=== PATIENT | male | born 1985 | race Caucasian/White ===

== ENCOUNTER 2020-07-31 17:05 | Emergency (ER) | payer MEDICARE, MEDICAID, SELFPAY ==
[2020-07-31 17:20] VITALS: BP 132/74; PULSE 80; RESP 18; TEMP 37.3; O2SAT 98; BMI 37.5
--- NOTE | 2020-07-31 17:24 | ED_ITS ---
HPI - Abdominal Pain General Chief Complaint: Back Pain/Injury Stated Complaint: abd pain Time Seen by Provider: 07/31/20 17:24 Source: EMS Mode of arrival: EMS Limitations: no limitations History of Present Illness HPI narrative: 34-year-old male who reports that he has remote history of kidney stones long time ago from the age of 19 and no other medical history presents via EMS from work where he reports that he experienced sudden and sharp left flank and left-sided abdominal pain. EMS was called found patient to be diaphoretic and sweating with complaint of pain and discomfort he was subsequently given 50 mics of fentanyl and transferred to emergency room. States pain improved very slightly still 8 to 9/10. Nausea has improved after for Zofran. Otherwise no recent illness. No recent cough congestion. No nausea vomiting or diarrhea. No recent travel or sick contacts. MD elicited complaint: abdominal pain and flank pain Pertinent past history: kidney stones Onset (ago): minute(s) ( Past for 45 minutes to an hour) Pain Consistency: constant Location: LLQ and L flank Severity: severe Pain scale (0-10): 9 Quality: stabbing, aching and sharp Radiation: LLQ Migration to: LLQ Exacerbating factors: nothing Relieving factors: medication Associated symptoms: nausea Treatments prior to arrival: other ( he was given 50 mEq of fentanyl by EMS as well as 4 mg of IV Zofran) Related Data Previous Rx's Medication Instructions Recorded ibuprofen 800 mg PO Q8H PRN #30 tab 07/31/20 ondansetron HCl [Zofran] 4 mg PO Q8H PRN #10 tab 07/31/20 oxycodone 5 mg PO BID PRN #10 tab 07/31/20 tamsulosin [Flomax] 0.4 mg PO DAILY #10 cap 07/31/20 Allergies Allergy/AdvReac Type Severity Reaction Status Date / Time No Known Allergies Allergy Unverified 06/25/20 15:44 Review of Systems Review of Systems Constitutional: No Weight loss, No Fever, No Chills, No Night Sweats, No Fatigue, No Malaise ENT/Mouth: No Hearing loss, No Ear Pain, No Nasal Congestion, No Sinus Pain, No Hoarseness, No sore throat, No Rhinorrhea, No Swallowing Difficulty Eyes: No Eye Pain, No Swelling, No Redness, No Foreign Body, No Discharge, No Vision Changes Cardiovascular: No Chest Pain, No SOB, No Dyspnea on Exertion, No Orthopnea, No Edema, No Palpitations Respiratory: No Cough, No Sputum, No Wheezing, No Smoke Exposure, No Dyspnea Gastrointestinal: + Nausea, No Vomiting, No Diarrhea, No Constipation, + abdominal Pain, No Hematochezia, No Melena Genitourinary: no irregular bleeding, No Dysuria, No Urinary Frequency, No Hematuria, No Urinary Incontinence, No Urgency, No Flank Pain, No Urinary Flow Changes, No Hesitancy Musculoskeletal: No joint pain, No Myalgias, No Joint Swelling Skin: No Skin Lesions, No rash Neuro: No Weakness, No Numbness, No Paresthesias, No Loss of Consciousness, No Dizziness, No Headache Psych: No Anxiety/Panic, No Depression, No SI/HI/AH/VH, No Social Issues, He me/Lymph: No Bruising, No Bleeding,No Lymphadenopathy Endocrine: No Polyuria, No Polydipsia, No Temperature Intolerance Yes all other systems are reviewed and are negative Physical Exam Vital Signs: Vital Signs: Vital Signs Temp Pulse Resp BP Pulse Ox 07/31/20 17:20 99.1 F 80 18 132/74 98 Body Mass Index 37.5 Reviewed Course Course Course Narrative: has been resting comfortably. Labs showed leukocytosis of 14 likely reactive from thenausea vomiting secondary to the pain and diaphoresis. Otherwise labs are stable. UA is negative. CT of the abdomen pelvis without contrast shows that there is left grade 2 hydronephrosis secondary to a 2 mm obstructive left UVJ calculus. 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 Patient has been resting comfortably in fact he has been conversing on the phone in no acute distress. He will be discharged home with ibuprofen / analgesia and Flomax and advised for follow-up with Urology. Plan reviewed and agreeable. Stable for discharge. MDM - Abdominal Pain MDM Narrative Medical decision making narrative: will check labs including UA and treat with IV fluids and 30 mg of IV Toradol. Will check CT of abdomen/ pelvis without contrast for renal calculi/ obstructive process. Differential Diagnosis Differential diagnosis: Likely abdominal pain, calculus of kidney, diverticulitis and renal colic; Unlikely aortic dissection, acute appendicitis, bowel perforation, constipation, endometriosis, gastroenteritis, gastritis, mesenteric ischemia, pancreatitis, peptic ulcer disease and small bowel obstruction Lab Data Result diagrams: 07/31/20 20:22 07/31/20 18:16 Labs: Lab Results 07/31/20 07/31/20 07/31/20 Range/Units 18:16 18:16 20:22 WBC 14.1 H (4.8-10.8) X10*3/uL RBC 4.97 (4.60-5.80) X10*6/uL Hgb 14.6 (14.0-18.0) g/dl Hct 44.8 (42-52) % MCV 90.1 (80-98) fL MCH 29.4 (27.0-33.0) pg MCHC 32.6 (31.0-36.0) g/dl RDW 12.3 (11.0-16.0) % Plt Count 321 (160-400) X10*3/uL MPV 8.9 L (9.4-12.4) fL Immature Gran % (Auto) 0.2 (0.0-0.4) % Neut % (Auto) 79.0 H (45-73) % Lymph % (Auto) 14.7 L (20-40) % [place] % (Auto) 5.2 (2-11) % Eos % (Auto) 0.3 (0-4) % Baso % (Auto) 0.6 (0-2) % Lymph # (Auto) 2.1 (1.2-4.9) X10*3/uL [place] # (Auto) 0.7 (0.1-1.2) X10*3/uL Eos # (Auto) 0.0 (0.0-0.4) X10*3/uL Baso # (Auto) 0.1 (0.0-0.2) X10*3/uL Abs Immat Gran (auto) 0.03 (0.00-0.03) X10*3/uL Absolute Neuts (auto) 11.2 H (2.0-8.3) X10*3/uL Absolute Nucleated RBC 0.000 (0.0-0.012) X10*3/uL Nucleated RBC % (auto) 0.0 (0.0-0.2) /100WBC Sodium 143 (135-145) mmol/L Potassium 4.5 (3.3-5.1) mmol/l Chloride 108 (96-108) mmol/L Carbon Dioxide 25 (22-29) mmol/L Anion Gap 15 (12-20) BUN 15 (9-16) mg/dL Creatinine 1.04 (0.5-1.4) mg/dL Estim Creat Clear Calc 123.8 Estimated GFR > 60 Random Glucose 101 (60-115) mg/dL Calcium 8.8 (8.4-10.2) mg/dL Total Bilirubin 0.6 (0.0-1.0) mg/dL AST 27 (5-37) U/L ALT 32 (0-40) U/L Alkaline Phosphatase 91 (39-117) U/L Total Protein 6.9 (6.5-8.0) g/dL Albumin 4.2 (3.5-5.0) g/dL Urine Color YELLOW Urine Appearance CLEAR Urine pH 5.5 (5.0-8.0) Ur Specific Treichlers >= 1.030 H (1.005-1.025) Urine Protein NEG (NEG-TRACE) MG/DL Urine Glucose (UA) NEG (NEG) MG/DL Urine Ketones NEG (NEG) MG/DL Urine Blood 3+ H (NEG) Urine Nitrite NEG (NEG) Ur Leukocyte Esterase NEG (NEG) Urine RBC 5-9 H (0) /HPF Urine WBC 0 (0-4) /HPF Ur Squamous Epith Cells NONE /LPF Urine Bacteria NONE /LPF Imaging Data Abdomen pelvis CT without contrast: Radiologist's impression: [place] [id number] CT Scan Report Signed Patient: Manny Arellano#: [id number] : 1985Acct:[id number] Age/Sex: 34 / MADM Date: 07/31/20 Loc: HO.ED Attending Dr: Ordering Physician: Delon Martin NP Date of Service: 07/31/20 Procedure(s): CT abdomen pelvis wo con Accession Number(s): [id number] cc: Delon Martin NP~ EXAMINATION: CT ABDOMEN AND PELVIS WITHOUT CONTRAST CLINICAL INFORMATION: Left-sided pain. COMPARISON: June 01, 2019. TECHNIQUE: Contiguous axial thin section helical images of the abdomen and pelvis were performed without oral or IV contrast. The data set was reformatted in the coronal and sagittal planes and reviewed on an independent workstation. DLP: 881 mGy-cm. FINDINGS: The visualized lung bases are clear. The visualized portions of the heart are unremarkable. The liver is of normal size and attenuation without focal lesions nor intrahepatic biliary ductal dilation. A normal gallbladder is identified. There is no wall thickening or discernible pericholecystic fluid. The spleen, pancreas, adrenal glands are unremarkable. Both kidneys are of normal size and attenuation. There are no renal calculi. There is left grade 2 hydroureteronephrosis secondary to a 2 mm obstructive left UVJ calculus. There is no abdominal free fluid. There is neither mesenteric nor retroperitoneal lymphadenopathy. Normal unopacified loops of small and large bowel are identified. There is no pelvic free fluid. The urinary bladder is unremarkable. There is neither pelvic nor inguinal lymphadenopathy. Bone windows: Neither sclerotic nor lytic bone lesions are identified. There are bilateral L5 pars defects with mild anterior displacement of L5 in relation to S1. CT/CT abdomen pelvis wo con IMPRESSION: Left grade 2 hydroureteronephrosis secondary to 2 mm obstructive left UVJ calculus. 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 Automated exposure control (Care Dose) Adjustment of the mA and/or kv according to patient size (this includes techniques or standardized protocols for targeted exams where dose is matched to indication / reason for exam; i.e. extremities or head). Dictated By:JOSEF CARVAJAL MD Signed By:<Electronically signed by JOSEF CARVAJAL MD in OV>07/31/20 1811 DD/ 172 TD/TT: Searchlight Operator: WP Discharge Plan Discharge Clinical Impression: Renal colic Patient Disposition: Home, Self-Care Instructions: Kidney Stones (ED) Additional Instructions: Push fluids Take medication prescribed Follow-up with urologist on Monday Return if any concerns or worsening symptoms Thank you Prescriptions: New ibuprofen 800 mg tablet 800 mg PO Q8H PRN (Reason: pain) Qty: 30 RF: 0 ondansetron HCl [Zofran] 4 mg tablet 4 mg PO Q8H PRN (Reason: nausea and vomiting) Qty: 10 RF: 0 tamsulosin [Flomax] 0.4 mg capsule 0.4 mg PO DAILY Qty: 10 RF: 0 oxycodone 5 mg tablet 5 mg PO BID PRN (Reason: pain) Qty: 10 RF: 0 Referrals: Jimmy Vaughn MD [Physician] - 3 days Stand Alone Forms: Work/School Release [facility] Past Medical History Medical History (Updated 07/31/20 @ 21:13 by Delon Martin NP) No known health problems Social History Social History Alcohol intake: never Smoked in Last 30 Days: No Use of substances other than those prescribed or required for medical reasons: No Advance Directives: No Advance Directives Information Provided: No
[2020-07-31] MEDS: Ketorolac Tromethamine 30 MG/ML VIAL IVPUSH (18:20)
[2020-07-31] MEDS: 0.9 % Sodium Chloride 500 ML 1000 ML IV (18:20)
[2020-07-31 18:26] LABS: Glucose Urine UA NEG (NEG); Leukocyte Esterase Urine NEG (NEG); Nitrite Urine NEG (NEG); PH 5.5 (5.0-8.0); Specific Gravity - Urine >= 1.030 (1.005-1.025); Urine Blood 3+ (NEG); Urine Ketones NEG (NEG); Urine Protein NEG (NEG-TRACE)
[2020-07-31 18:27] LABS: Appearance Urine CLEAR; Color Urine YELLOW
[2020-07-31 18:33] LABS: WBC Urine 0 /HPF (0-4)
[2020-07-31 18:56] LABS: Alanine Aminotransferase 32 U/L (0-40); Albumin Level 4.2 g/dL (3.5-5.0); Alkaline Phosphatase 91 U/L (39-117); Anion Gap 15 (12-20); Aspartate Amino Transferase 27 U/L (5-37); Bilirubin Total 0.6 mg/dL (0.0-1.0); Blood Urea Nitrogen 15 mg/dL (9-16); Calcium 8.8 mg/dL (8.4-10.2); Carbon Dioxide 25 mmol/L (22-29); Chloride 108 mmol/L (96-108); Creatinine Clr Calc Pharmacy 123.8; Estimated Glomerular Filt Rate > 60; Glucose Random 101 mg/dL (60-115); Potassium 4.5 mmol/l (3.3-5.1); Sodium 143 mmol/L (135-145); Total Protein 6.9 g/dL (6.5-8.0)
[2020-07-31 20:27] LABS: Basophils Absolute Auto 0.1 X10*3/uL (0.0-0.2); Basophils Percent Auto 0.6 % (0-2); Eosinophils Percent Auto 0.3 % (0-4); Hematocrit 44.8 % (42-52); Hemoglobin 14.6 g/dl (14.0-18.0); Imm Gran Abs Auto 0.03 X10*3/uL (0.00-0.03); Imm Gran Pct Auto 0.2 % (0.0-0.4); Lymphocytes Absolute Auto 2.1 X10*3/uL (1.2-4.9); Lymphocytes Percent Auto 14.7 % (20-40); MANUAL DIFF FLAG NO; Mean Corpuscular HGB Conc 32.6 g/dl (31.0-36.0); Mean Corpuscular Hemoglobin 29.4 pg (27.0-33.0); Mean Corpuscular Volume 90.1 fL (80-98); Mean Platelet Volume 8.9 fL (9.4-12.4); Monocytes Absolute Auto 0.7 X10*3/uL (0.1-1.2); Monocytes Percent Auto 5.2 % (2-11); Neutrophils Absolute Auto 11.2 X10*3/uL (2.0-8.3); Platelet Count 321 X10*3/uL (160-400); Red Blood Count 4.97 X10*6/uL (4.60-5.80); Red Cell Distribution Width 12.3 % (11.0-16.0); White Blood Count 14.1 X10*3/uL (4.8-10.8)
== END 2020-07-31 21:45 | disposition home or self-care (01) ==
PROVIDERS: Nurse Practitioner Primary Care; Emergency Provider Emergency Medicine; PCP Family Medicine
DX: N13.2 Hydronephrosis with renal and ureteral calculous obstruction (principal); Z87.442 Personal history of urinary calculi
CPT/HCPCS: 36415; 74176; 80053; 81001; 85025; 96361; 96374; 99284; J1885

== ENCOUNTER 2020-09-21 12:05 | Emergency (ER) | payer MEDICARE, MEDICAID, SELFPAY ==
[2020-09-21 12:12] VITALS: BP 128/88; PULSE 127; RESP 18; TEMP 37.1; O2SAT 96; BMI 38.5
--- NOTE | 2020-09-21 12:25 | XR_ITS ---
EXAMINATION: XR CHEST CLINICAL INFORMATION: Cough and night sweats COMPARISON: None TECHNIQUE: Frontal view of the chest was obtained. FINDINGS: No significant abnormality is noted involving the heart, lungs, mediastinum, bony thorax or soft tissues. XR/XR chest 1V IMPRESSION: Unremarkable chest examination.
--- NOTE | 2020-09-21 13:02 | ED_ITS ---
HPI - General Adult General Chief complaint: Dizziness Stated complaint: Covid/ chest pain Time Seen by Provider: 09/21/20 12:23 Source: patient History of Present Illness HPI narrative: Patient presents to the ED for COVID like symptoms. Patient states night sweats, chest pain, coughing, and dizziness described as lightheadedness for the past 2 days. Patient states family members also at home having similar symptoms. Patient denies any swelling of lower extremities, calf pain, coughing up blood, chest pain on inspiration, or shortness of breath. Patient presently denies any chest pain or shortness of breath. Related Data Previous Rx's Medication Instructions Recorded ibuprofen 800 mg PO Q8H PRN #30 tab 07/31/20 ondansetron HCl [Zofran] 4 mg PO Q8H PRN #10 tab 07/31/20 oxycodone 5 mg PO BID PRN #10 tab 07/31/20 tamsulosin [Flomax] 0.4 mg PO DAILY #10 cap 07/31/20 Allergies Allergy/AdvReac Type Severity Reaction Status Date / Time No Known Allergies Allergy Verified 09/21/20 12:14 Review of Systems Review of Systems: Yes all other systems are reviewed and are negative Constitutional: Constitutional: Reports as per HPI, Reports no additional constitutional complaints, Reports body ache(s), Reports chills, Reports fatigue, Reports fever(s) and Reports night sweats Eyes: Eyes: Reports as per HPI and Reports no additional eye complaints ENT: Reports system reviewed and no additional complaints, except as documented and Reports as per HPI Cardiovascular: Cardiovascular: Reports as per HPI, Reports no additional cardiovascular complaints, Reports chest pain, Denies chest pain at rest, Denies chest pain with activity, Denies dyspnea on exertion, Denies orthopnea and Denies paroxysmal nocturnal dyspnea Respiratory: Respiratory: Reports as per HPI, Reports no additional respiratory complaints, Reports cough and Denies dyspnea on exertion Gastrointestinal: Gastrointestinal: Reports as per HPI and Reports no additional gastrointestinal complaints Genitourinary: Genitourinary: Reports no additional male genitourinary complaints and Reports as per HPI Musculoskeletal: Musculoskeletal: Reports no additional musculoskeletal complaints and Reports as per HPI Neurologic: Reports system reviewed and no additional complaints, except as documented and Reports as per HPI Psychiatric: Psychiatric: Reports no additional psychiatric complaints and Reports as per HPI Endocrine: Endocrine: Reports fatigue PMFSH Past Medical History Medical History (Updated 09/21/20 @ 16:42 by LEORA Lin) No known health problems Social History Social History Alcohol intake: never Advance Directives: No Advance Directives Information Provided: No Physical Exam Vital Signs: Vital Signs: Last Vital Signs Temp 98.7 F 09/21/20 12:12 Pulse 127 H 09/21/20 12:12 Resp 18 09/21/20 12:12 BP 128/88 09/21/20 12:12 Pulse Ox 96 09/21/20 12:12 Body Mass Index 38.5 Const: General: cooperative, healthy appearing, comfortable, no acute distress, well developed, alert, awake and Physically active Orientation/consciousness: patient oriented x3 HENMT: Head: Yes normal to inspection and Yes No palpable skull fracture present Eyes: General: appearance normal, both eyes and all related structures Neck: Neck: Yes normal visual inspection and Yes full ROM Chest: Chest palpation & inspection: normal inspection of the chest, normal palpation of entire chest wall and no localized rib tenderness Resp: Effort & Inspection: normal respiratory effort and able to speak in complete sentences Auscultation: clear to auscultation bilaterally Cardio: Jugular venous distension: no JVD Heart sounds: S1 normal heart sound present and S2 normal heart sound present GI: Inspection: Yes normal to inspection and No abdominal wall ecchymosis Palpation (GI): Soft to palpation, not firm, nontender, no guarding and not ri gid : General: No CVA tenderness and Yes no CVA tenderness Back/Spine/Pelvis: Back: no CVA tenderness, No CVA tenderness and No back tenderness Skin: General skin exam: no rashes or lesions noted and elasticity normal Neuro: General: patient oriented x3, gait normal and CN's II-XI intact bilaterally Cranial nerves: Yes CN's II-XII intact bilaterally Extrem: General: Yes normal to inspection and Yes full ROM Course Course Course Narrative: Patient is not toxic appearing. Patient is tachycardic due to anxiety most likely. Patient will be given oral fluids, Motrin, and have vital Signs re-evaluated. Patient will have chest x-ray ordered an COVID swab. Reevaluation(s) Reevaluation #1: After drinking oral fluids patient heart rate still tachycardic at 01:27. Due to patient stating he had chest pain yesterday and now tachycardic will do basic labs including D-dimer. Reevaluation #2: Patient D-dimer above 2000. Patient presently is asymptomatic. Due to D-dimer once kidney function comes back patient will have a chest CTA. Time: 14:22 Reevaluation #3: Chest CT negative for PE. Patient is safe for discharge. Patient presently asymptomatic is not have any chest pain or shortness of breath. COVID results pending. Patient educated on self-isolation. patient informed of nodules on chest CT scan and need for repeat in 6 months. Time: 16:39 Medical Decision Making MDM Narrative Medical decision making narrative: Viral syndrome Lab Data Result diagrams: 09/21/20 13:35 09/21/20 13:35 Labs: Lab Results 09/21/20 09/21/20 09/21/20 Range/Units 13:35 13:35 13:35 WBC 5.4 (4.8-10.8) X10*3/uL RBC 5.56 (4.60-5.80) X10*6/uL Hgb 16.6 (14.0-18.0) g/dl Hct 50.0 (42-52) % MCV 89.9 (80-98) fL MCH 29.9 (27.0-33.0) pg MCHC 33.2 (31.0-36.0) g/dl RDW 12.6 (11.0-16.0) % Plt Count 326 (160-400) X10*3/uL MPV 9.1 L (9.4-12.4) fL Immature Gran % (Auto) 0.6 H (0.0-0.4) % Neut % (Auto) 61.8 (45-73) % Lymph % (Auto) 21.1 (20-40) % [place] % (Auto) 15.1 H (2-11) % Eos % (Auto) 0.7 (0-4) % Baso % (Auto) 0.7 (0-2) % Lymph # (Auto) 1.2 (1.2-4.9) X10*3/uL [place] # (Auto) 0.8 (0.1-1.2) X10*3/uL Eos # (Auto) 0.0 (0.0-0.4) X10*3/uL Baso # (Auto) 0.0 (0.0-0.2) X10*3/uL Abs Immat Gran (auto) 0.03 (0.00-0.03) X10*3/uL Absolute Neuts (auto) 3.4 (2.0-8.3) X10*3/uL Absolute Nucleated RBC 0.000 (0.0-0.012) X10*3/uL Nucleated RBC % (auto) 0.0 (0.0-0.2) /100WBC PT (10.8-13.0) SEC INR (0.9-1.1) APTT (24.1-38.0) SEC D-Dimer 2393 NG/ML Sodium 138 (135-145) mmol/L Potassium 4.4 (3.3-5.1) mmol/l Chloride 104 (96-108) mmol/L Carbon Dioxide 25 (22-29) mmol/L Anion Gap 13 (12-20) BUN 15 (9-16) mg/dL Creatinine 0.88 (0.5-1.4) mg/dL Estim Creat Clear Calc 137.8 Estimated GFR > 60 Random Glucose 100 (60-115) mg/dL Calcium 8.7 (8.4-10.2) mg/dL Ferritin 250 (20-250) ng/mL Total Bilirubin 0.6 (0.0-1.0) mg/dL AST 25 (5-37) U/L ALT 36 (0-40) U/L Alkaline Phosphatase 89 (39-117) U/L Lactate Dehydrogenase 209 (118-273) U/L Troponin I High Sens (<3.5-35.0) ng/L Total Protein 7.3 (6.5-8.0) g/dL Albumin 4.4 (3.5-5.0) g/dL Procalcitonin ng/mL 09/21/20 09/21/20 09/21/20 Range/Units 13:35 13:35 13:35 WBC (4.8-10.8) X10*3/uL RBC (4.60-5.80) X10*6/uL Hgb (14.0-18.0) g/dl Hct (42-52) % MCV (80-98) fL MCH (27.0-33.0) pg MCHC (31.0-36.0) g/dl RDW (11.0-16.0) % Plt Count (160-400) X10*3/uL MPV (9.4-12.4) fL Immature Gran % (Auto) (0.0-0.4) % Neut % (Auto) (45-73) % Lymph % (Auto) (20-40) % [place] % (Auto) (2-11) % Eos % (Auto) (0-4) % Baso % (Auto) (0-2) % Lymph # (Auto) (1.2-4.9) X10*3/uL [place] # (Auto) (0.1-1.2) X10*3/uL Eos # (Auto) (0.0-0.4) X10*3/uL Baso # (Auto) (0.0-0.2) X10*3/uL Abs Immat Gran (auto) (0.00-0.03) X10*3/uL Absolute Neuts (auto) (2.0-8.3) X10*3/uL Absolute Nucleated RBC (0.0-0.012) X10*3/uL Nucleated RBC % (auto) (0.0-0.2) /100WBC PT 12.8 (10.8-13.0) SEC INR 1.1 (0.9-1.1) APTT 35.4 (24.1-38.0) SEC D-Dimer NG/ML Sodium (135-145) mmol/L Potassium (3.3-5.1) mmol/l Chloride (96-108) mmol/L Carbon Dioxide (22-29) mmol/L Anion Gap (12-20) BUN (9-16) mg/dL Creatinine (0.5-1.4) mg/dL Estim Creat Clear Calc Estimated GFR Random Glucose (60-115) mg/dL Calcium (8.4-10.2) mg/dL Ferritin (20-250) ng/mL Total Bilirubin (0.0-1.0) mg/dL AST (5-37) U/L ALT (0-40) U/L Alkaline Phosphatase (39-117) U/L Lactate Dehydrogenase (118-273) U/L Troponin I High Sens < 3.5 (<3.5-35.0) ng/L Total Protein (6.5-8.0) g/dL Albumin (3.5-5.0) g/dL Procalcitonin 0.07 ng/mL ECG Data Interpretation: Sinus tachycardia. Ventricular rate 115. Pr interval 134. QRS duration 96. QTC 448. Negative STEMI Discharge Plan Discharge Clinical Impression: Acute viral syndrome Patient Disposition: Home, Self-Care Instructions: Viral Syndrome (ED) Additional Instructions: Return to the ED for any chest pain, shortness of breath, weakness, coughing up blood, intractable fever, chills, or any other concerning symptoms. Recommend 14 days self-isolation if COVID test come back positive or symptoms worsen. Prescriptions: No Action ibuprofen 800 mg tablet 800 mg PO Q8H PRN (Reason: pain) Qty: 30 RF: 0 ondansetron HCl [Zofran] 4 mg tablet 4 mg PO Q8H PRN (Reason: nausea and vomiting) Qty: 10 RF: 0 tamsulosin [Flomax] 0.4 mg capsule 0.4 mg PO DAILY Qty: 10 RF: 0 oxycodone 5 mg tablet 5 mg PO BID PRN (Reason: pain) Qty: 10 RF: 0 Referrals: Hannah Benoit DO [Primary Care Provider] - 2 days (Viral syndrome. Troponin negative. Chest CTA negative for PE or pneumonia.) Stand Alone Forms: Work/School Release Print Language: Taiwanese
[2020-09-21] MEDS: Ibuprofen 800 MG TABLET PO (13:05)
--- NOTE | 2020-09-21 13:08 | ECG_ITS ---
Test Reason : WEAKNESS Blood Pressure : / mmHG Vent. Rate : 115 BPM Atrial Rate : 115 BPM P-R Int : 134 ms QRS Dur : 096 ms QT Int : 324 ms P-R-T Axes : 023 -18 040 degrees QTc Int : 448 ms Sinus tachycardia Minimal voltage criteria for LVH, may be normal variant Borderline ECG When compared with ECG of 26-JUL-2012 11:47, Vent. rate has increased BY 38 BPM Referred By: Missael George Electronically Signed By:Dat Bañuelos
[2020-09-21] MEDS: 0.9 % Sodium Chloride 1,000 ML 999 ML IVCONT (13:36)
[2020-09-21 13:45] LABS: MANUAL DIFF FLAG NO
[2020-09-21 13:51] LABS: INTERNATIONAL NORM RATIO 1.1 (0.9-1.1); Prothrombin Time 12.8 SEC (10.8-13.0)
[2020-09-21 13:52] LABS: Basophils Percent Auto 0.7 % (0-2); Eosinophils Percent Auto 0.7 % (0-4); Hemoglobin 16.6 g/dl (14.0-18.0); Imm Gran Abs Auto 0.03 X10*3/uL (0.00-0.03); Imm Gran Pct Auto 0.6 % (0.0-0.4); Lymphocytes Absolute Auto 1.2 X10*3/uL (1.2-4.9); Lymphocytes Percent Auto 21.1 % (20-40); Mean Corpuscular HGB Conc 33.2 g/dl (31.0-36.0); Mean Corpuscular Hemoglobin 29.9 pg (27.0-33.0); Mean Corpuscular Volume 89.9 fL (80-98); Mean Platelet Volume 9.1 fL (9.4-12.4); Monocytes Absolute Auto 0.8 X10*3/uL (0.1-1.2); Monocytes Percent Auto 15.1 % (2-11); Neutrophils Absolute Auto 3.4 X10*3/uL (2.0-8.3); Neutrophils Percent Auto 61.8 % (45-73); Platelet Count 326 X10*3/uL (160-400); Red Blood Count 5.56 X10*6/uL (4.60-5.80); Red Cell Distribution Width 12.6 % (11.0-16.0); White Blood Count 5.4 X10*3/uL (4.8-10.8)
[2020-09-21 13:54] LABS: Partial Thromboplastin Time 35.4 SEC (24.1-38.0)
[2020-09-21 14:02] LABS: D Dimer 2393 NG/ML
--- NOTE | 2020-09-21 14:15 | PC.NURSE ---
PT ARRIVES VIA EMS C/O DIZZINESS AND CHILLS SINCE YESTERDAY. AFEBRILE ON ARRIVAL, SLIGHTLY TACHYCARDIC. RESP EVEN AND NONLABOURED, SPEAKING IN CLEAR FULL SENTENCES. SKIN COLOUR APPROPRIATE FOR ETHNICITY, WARM, DRY.
[2020-09-21 14:37] LABS: Alanine Aminotransferase 36 U/L (0-40); Albumin Level 4.4 g/dL (3.5-5.0); Alkaline Phosphatase 89 U/L (39-117); Anion Gap 13 (12-20); Aspartate Amino Transferase 25 U/L (5-37); Bilirubin Total 0.6 mg/dL (0.0-1.0); Blood Urea Nitrogen 15 mg/dL (9-16); Calcium 8.7 mg/dL (8.4-10.2); Carbon Dioxide 25 mmol/L (22-29); Chloride 104 mmol/L (96-108); Creatinine Clr Calc Pharmacy 137.8; Estimated Glomerular Filt Rate > 60; Glucose Random 100 mg/dL (60-115); Lactate Dehydrogenase 209 U/L (118-273); Potassium 4.4 mmol/l (3.3-5.1); Sodium 138 mmol/L (135-145); Total Protein 7.3 g/dL (6.5-8.0); Troponin-I High Sensitivity < 3.5 ng/L (<3.5-35.0)
--- NOTE | 2020-09-21 14:46 | CT_ITS ---
EXAMINATION: CT ANGIOGRAM OF THE CHEST WITH AND WITHOUT CONTRAST (CT PULMONARY ANGIOGRAM FOR PE) CLINICAL INFORMATION: Tachycardia, elevated D-dimer. PE. COMPARISON: None TECHNIQUE: Prior to contrast administration, noncontrast localization images were obtained. Subsequently, multidetector volumetric imaging was performed from the thoracic inlet to below the diaphragms following the administration of 65 mL Omnipaque 350 intravenous contrast. No contrast reaction reported Sagittal, coronal, and MIP oblique sagittal reformatted images were obtained on the CT workstation, uploaded to PACS, and reviewed. This CT examination was performed using dose optimization techniques as appropriate, variously including the following: *Automated exposure control *Adjustment of mA and/or kV according to patient size (this includes techniques or standardized protocols for targeted exams where dose is matched to indication/reason for exam; i.e. extremities or head) *Use of iterative reconstruction technique Total exam dose-length product 440 mGy-cm FINDINGS: PULMONARY ARTERIES: No evidence of filling defects to indicate central or segmental pulmonary emboli. THORACIC AORTA: No aneurysm or dissection. LUN mm nodule left lower lobe image 318/8. 4 mm nodule right lower lobe image 266/8. Mild right posterior lung dependent changes. No confluent consolidation. Trachea and central airway are patent. PLEURA: No pleural effusion or pneumothorax. MEDIASTINUM: Normal heart size. No pericardial effusion. No hilar or mediastinal lymphadenopathy. No evidence of septal bowing or right heart strain. CHEST WALL/AXILLA: No axillary or internal mammary lymphadenopathy. OSSEOUS STRUCTURES: No acute or suspicious osseous abnormality. UPPER ABDOMEN: Unremarkable. No reflux of contrast into the hepatic veins to suggest elevated right heart pressures. CT/CT angio chest PE protocol IMPRESSION: 1. No evidence of filling defects to indicate central or segmental pulmonary emboli. 2. There are 2 pulmonary nodules, larger measuring 4 mm. According to the UPDATED 2017 Fleischner Society recommendations, the advised follow-up imaging for solid nodules < 6 mm is: LOW RISK PATIENT: No routine follow-up. HIGH RISK PATIENT: Optional CT at 12 months. VTE: negative
[2020-09-21] MEDS: iohexoL 350 MG/ML 100 ML INFUS..BTL IV (15:19)
[2020-09-21 15:30] LABS: Procalcitonin 0.07 ng/mL
[2020-09-21 15:39] LABS: Ferritin 250 ng/mL (20-250)
[2020-09-21 17:06] VITALS: BP 141/83; PULSE 100; RESP 16; O2SAT 97
== END 2020-09-21 17:10 | disposition home or self-care (01) ==
PROVIDERS: Physician Assistant; Emergency Provider Emergency Medicine; PCP Family Medicine
DX: U07.1 COVID-19 (principal)
CPT/HCPCS: 36415; 71045; 71275; 80053; 82728; 83615; 84145; 84484; 85025; 85379; 85610; 85730; 93005; 96360; 99284; Q9967; U0003

== ENCOUNTER 2020-09-22 12:12 | Emergency (ER) | payer MEDICARE, MEDICAID, SELFPAY ==
--- NOTE | 2020-09-22 12:15 | ED_ITS ---
HPI - Back Pain/Injury General Chief Complaint: Dizziness <Julia Thomson NP - Last Filed: 09/22/20 15:16> Stated Complaint: back pain <Julia Thomson NP - Last Filed: 09/22/20 15:16> Time Seen by Provider: 09/22/20 12:13 <Julia Thomson NP - Last Filed: 09/22/20 15:16> Source: patient and EMS <Julia Thomson NP - Last Filed: 09/22/20 15:16> Mode of arrival: EMS <Julia Thomson NP - Last Filed: 09/22/20 15:16> Limitations: no limitations <Julia Thomson NP - Last Filed: 09/22/20 15:16> History of Present Illness HPI Narrative: Here with complaints of low back pain with radiation down the left leg with intermittent numbness and tingling x2 months. The patient tells me he works at [employer] and does a lot of lifting and thinks he may have injured his back at work. No new back pain. No saddle anesthesia no bowel or bladder incontinence. No fevers or chills. The patient is ambulatory. Of note, the patient was seen in this emergency department yesterday for body aches and chills. He had a COVID swab sent which is pending. He had a chest x- ray and a CTA which were unremarkable. He tells me that the symptoms are actually improved. He does still have a dry cough with no shortness of breath or chest discomfort. He is complaining of some dizziness which occurs with position changes. And he describes as feeling lightheaded. No vomiting or diarrhea. He has been tolerating p.o. with no difficulty. <Julia Thomson NP - Last Filed: 09/22/20 15:16> MD elicited complaint: back pain <Julia Thomson NP - Last Filed: 09/22/20 15:16> Pertinent past history: prior back pain <Julia Thomson NP - Last Filed: 09/22/20 15:16> Onset (ago): month(s) <Julia Thomson NP - Last Filed: 09/22/20 15:16> Timing: intermittent <Julia Thomson NP - Last Filed: 09/22/20 15:16> Severity: mild <Julia Thomson NP - Last Filed: 09/22/20 15:16> Similar Symptoms Previously: Yes <Julia Thomson NP - Last Filed: 09/22/20 15:16> Quality: sharp <Julia Thomson NP - Last Filed: 09/22/20 15:16> Location: lumbar spine <Julia Thomson NP - Last Filed: 09/22/20 15:16> Radiation: left upper leg <Julia Thomson NP - Last Filed: 09/22/20 15:16> Exacerbating factors: movement <Julia Thomson NP - Last Filed: 09/22/20 15:16> Relieving factors: immobilization <Julia Thomson NP - Last Filed: 09/22/20 15:16> Associated symptoms: denies other symptoms <Julia Thomson NP - Last Filed: 09/22/20 15:16> Related Data Home Medications: Previous Rx's Medication Instructions Recorded ibuprofen 800 mg PO Q8H PRN #30 tab 07/31/20 ondansetron HCl [Zofran] 4 mg PO Q8H PRN #10 tab 07/31/20 oxycodone 5 mg PO BID PRN #10 tab 07/31/20 tamsulosin [Flomax] 0.4 mg PO DAILY #10 cap 07/31/20 cyclobenzaprine 20 mg PO Q8H PRN #14 tab 09/22/20 lidocaine [Lidoderm] 1 patch TOPICAL DAILY #15 ea 09/22/20 naproxen 500 mg PO BID PRN #20 tab 09/22/20 <Julia Thomson NP - Last Filed: 09/22/20 15:16> Allergies/Adverse Reactions: Allergies Allergy/AdvReac Type Severity Reaction Status Date / Time No Known Allergies Allergy Verified 09/21/20 12:14 <Julia Thomson NP - Last Filed: 09/22/20 15:16> Review of Systems Review of Systems: Yes all other systems are reviewed and are negative <Julia Thomson WINDOW CLERK - Last Filed: 09/22/20 15:16> Constitutional: Constitutional: Reports no additional constitutional complaints, Denies body ache(s), Denies chills, Denies fever(s), Denies headache(s) and Denies weakness <Julia Thomson WINDOW CLERK - Last Filed: 09/22/20 15:16> Eyes: Eyes: Reports no additional eye complaints and Denies change in vision <Julia Thomson WINDOW CLERK - Last Filed: 09/22/20 15:16> ENT: Reports system reviewed and no additional complaints, except as documented, Reports dizziness, Denies headache(s), Denies nasal congestion, Jose es nasal discharge and Denies neck pain <Julia Thomson WINDOW CLERK - Last Filed: 09/22/20 15:16> Cardiovascular: Cardiovascular: Reports no additional cardiovascular complaints, Denies chest pain, Denies leg edema and Denies dyspnea <Julia Thomson WINDOW CLERK - Last Filed: 09/22/20 15:16> Respiratory: Respiratory: Reports no additional respiratory complaints, Denies cough and Denies dyspnea <Julia Thomson WINDOW CLERK - Last Filed: 09/22/20 15:16> Gastrointestinal: Gastrointestinal: Reports no additional gastrointestinal complaints, Denies abdominal pain, Denies diarrhea, Denies nausea and Denies vomiting <Julia Thomson WINDOW CLERK - Last Filed: 09/22/20 15:16> Genitourinary: Genitourinary: Denies urinary incontinence <Julia Thomson WINDOW CLERK - Last Filed: 09/22/20 15:16> Musculoskeletal: Musculoskeletal: Reports no additional musculoskeletal complaints, Reports back pain, Denies arthralgias, Denies joint swelling, Denies neck pain, Denies numbness and Denies tingling <Julia Thomson WINDOW CLERK - Last Filed: 09/22/20 15:16> Integumentary/Breasts: Skin/Breast: Reports system reviewed and no additional complaints, except as docu and Denies rash <Julia Thomson WINDOW CLERK - Last Filed: 09/22/20 15:16> Neurologic: Reports system reviewed and no additional complaints, except as documented, Denies Abnormal speech present, Reports dizziness, Denies headache(s), Denies numbness, Denies tingling and Denies weakness <Julia Thomson NP - Last Filed: 09/22/20 15:16> [facility] Past Medical History Attestation statement: The following information was validated with the patient. <Julia Thomson NP - Last Filed: 09/22/20 15:16> Source: old records reviewed and nursing notes reviewed <Julia Thomson NP - Last Filed: 09/22/20 15:16> Medical History: Medical History No known health problems Renal colic <Julia Thomson NP - Last Filed: 09/22/20 15:16> Social History Social History: Social History Alcohol intake: never Smoking Status: Never smoker <Julia Thomson NP - Last Filed: 09/22/20 15:16> Physical Exam Vital Signs: Vital Signs: Last Vital Signs Temp 98.1 F 09/22/20 14:33 Pulse 95 09/22/20 14:58 Resp 16 09/22/20 14:58 BP 115/74 09/22/20 14:58 Pulse Ox 96 09/22/20 14:58 Body Mass Index 36.8 <Julia Thomson NP - Last Filed: 09/22/20 15:16> Vital Signs: Last Vital Signs Temp 98.1 F 09/22/20 14:33 Pulse 95 09/22/20 14:58 Resp 16 09/22/20 14:58 BP 115/74 09/22/20 14:58 Pulse Ox 96 09/22/20 14:58 Body Mass Index 36.8 <Thang Sales MD - Last Filed: 10/04/20 09:11> Const: General: cooperative, healthy appearing, comfortable and no acute distress <Julia Thomson NP - Last Filed: 09/22/20 15:16> Orientation/consciousness: patient oriented x3 <Julia Thomson NP - Last Filed: 09/22/20 15:16> Limitations: no limitations <Julia Thomson WINDOW CLERK - Last Filed: 09/22/20 15:16> HENMT: Head: Yes normal to inspection <Julia Thomson WINDOW CLERK - Last Filed: 09/22/20 15:16> Ears: hearing grossly normal bilaterally <Julia Thomson WINDOW CLERK - Last Filed: 09/22/20 15:16> General nose exam: Normal external nose present <Julia Thomson WINDOW CLERK - Last Filed: 09/22/20 15:16> Face and sinus: Yes normal facial exam <Julia Thomson WINDOW CLERK - Last Filed: 09/22/20 15:16> Mouth: Normal oral and palatal mucosa present <Julia Thomson WINDOW CLERK - Last Filed: 09/22/20 15:16> Throat: Yes posterior oropharynx normal <Julia Thomson WINDOW CLERK - Last Filed: 09/22/20 15:16> Eyes: General: appearance normal, both eyes and all related structures <Julia Thomson WINDOW CLERK - Last Filed: 09/22/20 15:16> Pupils: Equal, round and reactive pupils present <Julia Thomson WINDOW CLERK - Last Filed: 09/22/20 15:16> Neck: Neck: Yes normal visual inspection <Julia Thomson WINDOW CLERK - Last Filed: 09/22/20 15:16> Chest: Chest palpation & inspection: normal inspection of the chest <Julia Thomson WINDOW CLERK - Last Filed: 09/22/20 15:16> Resp: Effort & Inspection: normal respiratory effort <Julia Thomson WINDOW CLERK - Last Filed: 09/22/20 15:16> Auscultation: clear to auscultation bilaterally <Julia Thomson WINDOW CLERK - Last Filed: 09/22/20 15:16> Cardio: Rate: regular rate <Julia Thomson WINDOW CLERK - Last Filed: 09/22/20 15:16> Rhythm: regular rhythm <Julia Thomson WINDOW CLERK - Last Filed: 09/22/20 15:16> Peripheral pulses: Peripheral pulses 2+ throughout <Julia Thomson NP - Last Filed: 09/22/20 15:16> GI: Inspection: Yes normal to inspection <Julia Thomson NP - Last Filed: 09/22/20 15:16> Palpation (GI): Soft to palpation and nontender <Julia Thomson NP - Last Filed: 09/22/20 15:16> Auscultation: normal bowel sounds <Julia Thomson NP - Last Filed: 09/22/20 15:16> Back/Spine/Pelvis: Other: Moderate lumbar midline tenderness with no step-offs or deformities. The patient also has left lumbar soft tissue tenderness. Pain is worsened with straight leg raise on the left side. <Julia Thomson NP - Last Filed: 09/22/20 15:16> Thoracic/Lumbar Spine: thoracic and lumbar spine normal to inspection <Julia Thomson NP - Last Filed: 09/22/20 15:16> Skin: General skin exam: no rashes or lesions noted <Julia Thomson WINDOW CLERK - Last Filed: 09/22/20 15:16> Neuro: General: patient oriented x3, no focal motor deficits and normal sensa tion to monofilament <Julia Thomson NP - Last Filed: 09/22/20 15:16> Cranial nerves: Yes CN's II-XII intact bilaterally, Yes Equal, round and reactive pupils present, Yes Bilaterally intact EOM present, Yes Nystagmus not present, Yes Normal facial strength present and Yes Midline tongue present <Julia Thomson WINDOW CLERK - Last Filed: 09/22/20 15:16> Cognition (Neuro): normal cognition <Julia Thomson WINDOW CLERK - Last Filed: 09/22/20 15:16> Speech: No Abnormal speech present <Julia Thomson NP - Last Filed: 09/22/20 15:16> Gait exam (Neuro): Normal gait present <Julia Thomson NP - Last Filed: 09/22/20 15:16> Motor exam (neuro): 5/5 motor strength present throughout <Julia Thomson WINDOW CLERK - Last Filed: 09/22/20 15:16> Sensory Exam: Normal double simultaneous stimulation for sensation <Julia Thomson NP - Last Filed: 09/22/20 15:16> Deep tendon reflexes (DTR's): Right patellar reflex intensity grade: 2+, Left patellar reflex intensity grade: 2+, Right ankle reflex intensity grade: 2+ and Left ankle reflex intensity grade: 2+ <Julia Thomson NP - Last Filed: 09/22/20 15:16> Coordination: [id number] test normal, [id number] test normal and tandem gait normal <Julia Thomson NP - Last Filed: 09/22/20 15:16> Extrem: General: Yes normal to inspection <Julia Thomson NP - Last Filed: 09/22/20 15:16> Course Course Course Narrative: 35-year-old male here with acute on chronic low back pain. No neurological deficits or red flag symptoms. Likely sciatica. Patient does have midline tenderness so will check imaging, provide analgesia. Also complaining of some dizziness with position changes. Noted to have a heart rate 120 sinus tachycardia on arrival. Will check labs, EKG, orthostatics. Will place PIV and give normal saline bolus and reassess. May be secondary to dehydration but also may be secondary to pain. 1459-labs unremarkable. EKG unchanged from previous. Orthostatics are positive which is probably contributing to the patient's heart rate. The patient received 1 L of fluid and his repeat heart rate was 90. His images of his low back are unremarkable. Likely sciatica. Pain is improved after receiving a dose of Toradol here. Reviewed findings with the patient. Reviewed worrisome signs and symptoms and when to return to the emergency department. Comfortable with discharge home. <Julia Thomson NP - Last Filed: 09/22/20 15:16> I have discussed the case and management with the ANGEL <Thang Sales MD - Last Filed: 10/04/20 09:11> MDM - Back Pain/Injury MDM Narrative Medical decision making narrative: sciatica, lumbar strain, herniated disc Orthostatic hypotension, dehydration, pain <Julia Thomson NP - Last Filed: 09/22/20 15:16> Medical Records Attestation: I reviewed the patient's medical records. <Julia Thomson NP - Last Filed: 09/22/20 15:16> Lab Data Attestation: I reviewed the patient's lab results. <Julia Thomson NP - Last Filed: 09/22/20 15:16> Result diagrams: : 09/22/20 12:43 09/22/20 12:43 <Julia Thomson NP - Last Filed: 09/22/20 15:16> Labs: Lab Results 09/22/20 09/22/20 09/22/20 Range/Units 12:43 12:43 12:43 WBC 4.3 L (4.8-10.8) X10*3/uL RBC 5.39 (4.60-5.80) X10*6/uL Hgb 15.8 (14.0-18.0) g/dl Hct 48.7 (42-52) % MCV 90.4 (80-98) fL MCH 29.3 (27.0-33.0) pg MCHC 32.4 (31.0-36.0) g/dl RDW 12.6 (11.0-16.0) % Plt Count 317 (160-400) X10*3/uL MPV 9.2 L (9.4-12.4) fL Immature Gran % (Auto) 0.2 (0.0-0.4) % Neut % (Auto) 49.3 (45-73) % Lymph % (Auto) 36.7 (20-40) % Towner % (Auto) 12.6 H (2-11) % Eos % (Auto) 0.5 (0-4) % Baso % (Auto) 0.7 (0-2) % Lymph # (Auto) 1.6 (1.2-4.9) X10*3/uL Towner # (Auto) 0.5 (0.1-1.2) X10*3/uL Eos # (Auto) 0.0 (0.0-0.4) X10*3/uL Baso # (Auto) 0.0 (0.0-0.2) X10*3/uL Abs Immat Gran (auto) 0.01 (0.00-0.03) X10*3/uL Absolute Neuts (auto) 2.1 (2.0-8.3) X10*3/uL Absolute Nucleated RBC 0.000 (0.0-0.012) X10*3/uL Nucleated RBC % (auto) 0.0 (0.0-0.2) /100WBC Sodium 141 (135-145) mmol/L Potassium 4.4 (3.3-5.1) mmol/l Chloride 106 (96-108) mmol/L Carbon Dioxide 28 (22-29) mmol/L Anion Gap 11 L (12-20) BUN 12 (9-16) mg/dL Creatinine 0.97 (0.5-1.4) mg/dL Estim Creat Clear Calc 126.0 Estimated GFR > 60 Random Glucose 123 H (60-115) mg/dL Calcium 8.2 L (8.4-10.2) mg/dL Magnesium 2.2 (1.6-2.6) mg/dL Troponin I High Sens < 3.5 (<3.5-35.0) ng/L <Julia Thomson, WINDOW CLERK - Last Filed: 09/22/20 15:16> Lab Results 09/22/20 09/22/20 09/22/20 Range/Units 12:43 12:43 12:43 WBC 4.3 L (4.8-10.8) X10*3/uL RBC 5.39 (4.60-5.80) X10*6/uL Hgb 15.8 (14.0-18.0) g/dl Hct 48.7 (42-52) % MCV 90.4 (80-98) fL MCH 29.3 (27.0-33.0) pg MCHC 32.4 (31.0-36.0) g/dl RDW 12.6 (11.0-16.0) % Plt Count 317 (160-400) X10*3/uL MPV 9.2 L (9.4-12.4) fL Immature Gran % (Auto) 0.2 (0.0-0.4) % Neut % (Auto) 49.3 (45-73) % Lymph % (Auto) 36.7 (20-40) % Towner % (Auto) 12.6 H (2-11) % Eos % (Auto) 0.5 (0-4) % Baso % (Auto) 0.7 (0-2) % Lymph # (Auto) 1.6 (1.2-4.9) X10*3/uL Towner # (Auto) 0.5 (0.1-1.2) X10*3/uL Eos # (Auto) 0.0 (0.0-0.4) X10*3/uL Baso # (Auto) 0.0 (0.0-0.2) X10*3/uL Abs Immat Gran (auto) 0.01 (0.00-0.03) X10*3/uL Absolute Neuts (auto) 2.1 (2.0-8.3) X10*3/uL Absolute Nucleated RBC 0.000 (0.0-0.012) X10*3/uL Nucleated RBC % (auto) 0.0 (0.0-0.2) /100WBC Sodium 141 (135-145) mmol/L Potassium 4.4 (3.3-5.1) mmol/l Chloride 106 (96-108) mmol/L Carbon Dioxide 28 (22-29) mmol/L Anion Gap 11 L (12-20) BUN 12 (9-16) mg/dL Creatinine 0.97 (0.5-1.4) mg/dL Estim Creat Clear Calc 126.0 Estimated GFR > 60 Random Glucose 123 H (60-115) mg/dL Calcium 8.2 L (8.4-10.2) mg/dL Magnesium 2.2 (1.6-2.6) mg/dL Troponin I High Sens < 3.5 (<3.5-35.0) ng/L <Thang Sales MD - Last Filed: 10/04/20 09:11> Imaging Data lumbar spine: Attestation: I personally reviewed and interpreted this imaging study as follows: <Julia Thomson NP - Last Filed: 09/22/20 15:16> Radiologist's impression: [address] [address] XRay Report Signed Patient: Manny ArellanoMR#: [id number] : 1985Acct:[id number] Age/Sex: 35 / MADM Date: 09/22/20 Loc: HO.ED Attending Dr: Ordering Physician: JULIA THOMSON NP Date of Service: 09/22/20 Procedure(s): XR lumbar spine 2-3V Accession Number(s): [id number] cc: JULIA THOMSON NP~ EXAMINATION: XR LUMBOSACRAL SPINE CLINICAL INFORMATION: Low back pain. COMPARISON: None TECHNIQUE: Three views of the lumbosacral spine. FINDINGS: There is normal lumbar lordosis. The vertebral heights, alignment are normal. There is mild loss of L5-S1 disc height. Rest of the disc heights are normal. No visible acute fracture, dislocation or lytic process seen. The paravertebral soft tissues are normal. XR/XR lumbar spine 2-3V IMPRESSION: Mild degenerative disc changes at L5-S1 disc level. No visible acute fracture or dislocation seen. <Julia Thomson NP - Last Filed: 09/22/20 15:16> ECG Data Attestation: I personally reviewed and interpreted this ECG as follows: <Julia Thomson NP - Last Filed: 09/22/20 15:16> ECG interpretation date: 09/22/20 <Julia Thomsno NP - Last Filed: 09/22/20 15:16> ECG interpretation time: 12:42 <Julia Thomson NP - Last Filed: 09/22/20 15:16> Interpretation: Sinus tachycardia with a rate of 113, while p.r., recurrence, normal QT. <Julia Thomson NP - Last Filed: 09/22/20 15:16> Discharge Plan Discharge Clinical Impression: Sciatica, Acute dehydration, Orthostatic dizziness <Julia Thomson NP - Last Filed: 09/22/20 15:16> Patient Disposition: Home, Self-Care <Julia Thomson NP - Last Filed: 09/22/20 15:16> Instructions: Sciatica (ED), Dizziness (ED) <Julia Thomson NP - Last Filed: 09/22/20 15:16> Additional Instructions: Stay well-hydrated with Powerade and Gatorade Change positions slowly Start your medications for her back as soon as possible Or ice to the back. No heavy lifting or bending <Julia Thomson NP - Last Filed: 09/22/20 15:16> Prescriptions: New cyclobenzaprine 10 mg tablet 20 mg PO Q8H PRN (Reason: muscle spasm) Qty: 14 RF: 0 naproxen 500 mg tablet 500 mg PO BID PRN (Reason: pain) Qty: 20 RF: 0 lidocaine [Lidoderm] 5 % adhesive patch,medicated 1 patch topical DAILY Qty: 15 RF: 0 No Action ibuprofen 800 mg tablet 800 mg PO Q8H PRN (Reason: pain) Qty: 30 RF: 0 ondansetron HCl [Zofran] 4 mg tablet 4 mg PO Q8H PRN (Reason: nausea and vomiting) Qty: 10 RF: 0 tamsulosin [Flomax] 0.4 mg capsule 0.4 mg PO DAILY Qty: 10 RF: 0 oxycodone 5 mg tablet 5 mg PO BID PRN (Reason: pain) Qty: 10 RF: 0 <Julia Thomson NP - Last Filed: 09/22/20 15:16> Referrals: Hannah Benoit DO [Primary Care Provider] - 2 days <Julia Thomson NP - Last Filed: 09/22/20 15:16> Interventions: ED Discharge Assessment Last Done: 09/22/20 15:11 <Julia Thomson NP - Last Filed: 09/22/20 15:16> Discharge Date/Time: 09/22/20 15:11 <Julia Thomson NP - Last Filed: 09/22/20 15:16>
[2020-09-22 12:19] VITALS: BP 124/90; BP 134/85; PULSE 120; PULSE 124; RESP 18; TEMP 37.1; O2SAT 96; O2SAT 99; BMI 36.8
--- NOTE | 2020-09-22 12:27 | XR_ITS ---
EXAMINATION: XR LUMBOSACRAL SPINE CLINICAL INFORMATION: Low back pain. COMPARISON: None TECHNIQUE: Three views of the lumbosacral spine. FINDINGS: There is normal lumbar lordosis. The vertebral heights, alignment are normal. There is mild loss of L5-S1 disc height. Rest of the disc heights are normal. No visible acute fracture, dislocation or lytic process seen. The paravertebral soft tissues are normal. XR/XR lumbar spine 2-3V IMPRESSION: Mild degenerative disc changes at L5-S1 disc level. No visible acute fracture or dislocation seen.
--- NOTE | 2020-09-22 12:27 | ECG_ITS ---
Test Reason : WEAKNESS Blood Pressure : / mmHG Vent. Rate : 113 BPM Atrial Rate : 113 BPM P-R Int : 126 ms QRS Dur : 098 ms QT Int : 326 ms P-R-T Axes : 037 -18 044 degrees QTc Int : 447 ms Sinus tachycardia Minimal voltage criteria for LVH, may be normal variant Borderline ECG When compared with ECG of 21-SEP-2020 13:52, No significant change was found Referred By: Bernadette Galvan Electronically Signed By:Dat Bañuelos
[2020-09-22 12:39] VITALS: BP 124/73; BP 130/79; PULSE 110; PULSE 126
[2020-09-22 12:40] VITALS: BP 134/78; PULSE 129
[2020-09-22] MEDS: 0.9 % Sodium Chloride 1,000 ML 999 ML IV (12:44)
[2020-09-22] MEDS: Ketorolac Tromethamine 30 MG/ML VIAL IVPUSH (12:46)
[2020-09-22 12:48] LABS: MANUAL DIFF FLAG NO
[2020-09-22 12:50] LABS: Basophils Percent Auto 0.7 % (0-2); Eosinophils Percent Auto 0.5 % (0-4); Hematocrit 48.7 % (42-52); Hemoglobin 15.8 g/dl (14.0-18.0); Imm Gran Abs Auto 0.01 X10*3/uL (0.00-0.03); Imm Gran Pct Auto 0.2 % (0.0-0.4); Lymphocytes Absolute Auto 1.6 X10*3/uL (1.2-4.9); Lymphocytes Percent Auto 36.7 % (20-40); Mean Corpuscular HGB Conc 32.4 g/dl (31.0-36.0); Mean Corpuscular Hemoglobin 29.3 pg (27.0-33.0); Mean Corpuscular Volume 90.4 fL (80-98); Mean Platelet Volume 9.2 fL (9.4-12.4); Monocytes Absolute Auto 0.5 X10*3/uL (0.1-1.2); Monocytes Percent Auto 12.6 % (2-11); Neutrophils Absolute Auto 2.1 X10*3/uL (2.0-8.3); Neutrophils Percent Auto 49.3 % (45-73); Platelet Count 317 X10*3/uL (160-400); Red Blood Count 5.39 X10*6/uL (4.60-5.80); Red Cell Distribution Width 12.6 % (11.0-16.0); White Blood Count 4.3 X10*3/uL (4.8-10.8)
[2020-09-22 13:17] LABS: Anion Gap 11 (12-20); Blood Urea Nitrogen 12 mg/dL (9-16); Calcium 8.2 mg/dL (8.4-10.2); Carbon Dioxide 28 mmol/L (22-29); Chloride 106 mmol/L (96-108); Estimated Glomerular Filt Rate > 60; Glucose Random 123 mg/dL (60-115); Magnesium 2.2 mg/dL (1.6-2.6); Potassium 4.4 mmol/l (3.3-5.1); Sodium 141 mmol/L (135-145)
[2020-09-22 14:15] LABS: Troponin-I High Sensitivity < 3.5 ng/L (<3.5-35.0)
[2020-09-22 14:33] VITALS: BP 123/77; PULSE 103; RESP 18; TEMP 36.7; O2SAT 97
[2020-09-22 14:58] VITALS: BP 115/74; PULSE 95; RESP 16; O2SAT 96
== END 2020-09-22 15:11 | disposition home or self-care (01) ==
PROVIDERS: Nurse Practitioner Family; Emergency Provider Emergency Medicine; PCP Family Medicine
DX: I95.1 Orthostatic hypotension (principal); M54.32 Sciatica, left side; E86.0 Dehydration; M54.5 Low back pain; Z20.828 Contact with and (suspected) exposure to other viral communicable diseases
CPT/HCPCS: 36415; 72100; 80048; 83735; 84484; 85025; 93005; 96361; 96374; 99283; 99284; J1885

== ENCOUNTER 2020-09-25 09:36 | Emergency (ER) | payer MEDICARE, MEDICAID, SELFPAY ==
[2020-09-25 09:45] VITALS: BP 133/92; PULSE 115; RESP 20; TEMP 37.1; O2SAT 97; BMI 38.5
--- NOTE | 2020-09-25 10:07 | XR_ITS ---
EXAMINATION: XR CHEST CLINICAL INFORMATION: Cough COMPARISON: None TECHNIQUE: Portable upright AP view of the chest was obtained. FINDINGS: There are low lung volumes. There is no airspace consolidation or definite groundglass opacity. The costophrenic sulci are clear. There is no effusion. The heart is normal in size. The hilar and mediastinal contours and bony structures are unremarkable. XR/XR chest 1V IMPRESSION: Unremarkable examination.
[2020-09-25 10:34] VITALS: BP 128/84; PULSE 111; RESP 20; TEMP 37.1; O2SAT 96
--- NOTE | 2020-09-25 11:21 | ED_ITS ---
HPI - URI/Sore Throat General Chief Complaint: Upper Respiratory Symptoms Stated Complaint: DIFF BREATHING 100%ROOM AIR Time Seen by Provider: 09/25/20 09:53 History of Present Illness HPI Narrative: Patient has tested COVID positive and his complaint is a cough and some episodes of mild shortness of breath he is not short of breath now, he has his sense of taste and smell, no fever no chills but he does have some body aches Related Data Previous Rx's Medication Instructions Recorded ibuprofen 800 mg PO Q8H PRN #30 tab 07/31/20 ondansetron HCl [Zofran] 4 mg PO Q8H PRN #10 tab 07/31/20 oxycodone 5 mg PO BID PRN #10 tab 07/31/20 tamsulosin [Flomax] 0.4 mg PO DAILY #10 cap 07/31/20 cyclobenzaprine 20 mg PO Q8H PRN #14 tab 09/22/20 lidocaine [Lidoderm] 1 patch TOPICAL DAILY #15 ea 09/22/20 naproxen 500 mg PO BID PRN #20 tab 09/22/20 Allergies Allergy/AdvReac Type Severity Reaction Status Date / Time No Known Allergies Allergy Verified 09/21/20 12:14 Review of Systems Review of Systems: No fever no chills no weakness no chest pain no sputum no abdominal pain no vomiting no diarrhea no rash Yes all other systems are reviewed and are negative [facility] Past Medical History Attestation statement: The following information was validated with the patient. [facility] Narrative: No relevant medical history Medical History No known health problems Social History Social History Alcohol intake: never Physical Exam Vital Signs: Vital Signs: Last Vital Signs Temp 98.8 F 09/25/20 10:34 Pulse 111 H 09/25/20 10:34 Resp 20 09/25/20 10:34 BP 128/84 09/25/20 10:34 Pulse Ox 96 09/25/20 10:34 Body Mass Index 38.5 A&O x3, comfortable appearing, speaking full sentences, no evidence of any respiratory distress The head is normocephalic atraumatic The sinuses are nontender the pharynx is clear the neck is supple without no lymphadenopathy The chest is clear with full equal symmetrical breath sounds The heart rate and rhythm regular, no murmurs Abdomen soft nontender Extremities no calf pain, no edema Neuro no focal deficit Course Course Course Narrative: COVID positive patient with intermittent mild episodes of shortness of breath, no shortness of breath now, chest x-ray normal, exam normal is discharged home to return if needed Discharge Plan Discharge Clinical Impression: COVID-19 Patient Disposition: Home, Self-Care Additional Instructions: Your chest x-ray was normal and there is no sign of anything dangerous at this time Return to ER any time for difficulty breathing, any worse condition or any concerns COVID illness is very contagious use care especially with wearing a mask and keeping a distance Prescriptions: No Action ibuprofen 800 mg tablet 800 mg PO Q8H PRN (Reason: pain) Qty: 30 RF: 0 ondansetron HCl [Zofran] 4 mg tablet 4 mg PO Q8H PRN (Reason: nausea and vomiting) Qty: 10 RF: 0 tamsulosin [Flomax] 0.4 mg capsule 0.4 mg PO DAILY Qty: 10 RF: 0 oxycodone 5 mg tablet 5 mg PO BID PRN (Reason: pain) Qty: 10 RF: 0 cyclobenzaprine 10 mg tablet 20 mg PO Q8H PRN (Reason: muscle spasm) Qty: 14 RF: 0 naproxen 500 mg tablet 500 mg PO BID PRN (Reason: pain) Qty: 20 RF: 0 lidocaine [Lidoderm] 5 % adhesive patch,medicated 1 patch topical DAILY Qty: 15 RF: 0 Stand Alone Forms: Work/School Release Interventions: ED Discharge Assessment Last Done: 09/25/20 11:34 Discharge Date/Time: 09/25/20 11:35
== END 2020-09-25 11:35 | disposition home or self-care (01) ==
PROVIDERS: Emergency Provider Emergency Medicine Emergency Medical Services
DX: U07.1 COVID-19 (principal)
CPT/HCPCS: 71045; 99283; 99284

== ENCOUNTER 2020-09-25 17:41 | Emergency (ER) | payer MEDICARE, MEDICAID, SELFPAY ==
[2020-09-25 17:44] VITALS: BMI 38.4
--- NOTE | 2020-09-25 17:45 | ECG_ITS ---
Test Reason : CHEST PAIN Blood Pressure : / mmHG Vent. Rate : 114 BPM Atrial Rate : 114 BPM P-R Int : 132 ms QRS Dur : 090 ms QT Int : 324 ms P-R-T Axes : 032 -22 039 degrees QTc Int : 446 ms Sinus tachycardia Minimal voltage criteria for LVH, may be normal variant Borderline ECG When compared with ECG of 22-SEP-2020 12:42, No significant change was found Referred By: Generic ED Physician Electronically Signed By:Dat Bañuelos
[2020-09-25 18:17] VITALS: BP 111/76; PULSE 122; RESP 18; TEMP 36.8; O2SAT 96; BMI 38.4
--- NOTE | 2020-09-25 19:04 | ED_ITS ---
HPI - Chest Pain General Chief Complaint: Chest Pain Stated Complaint: chest pain Source: patient Mode of arrival: ambulatory Limitations: no limitations History of Present Illness HPI narrative: 35-year-old male recently COVID positive presents with chest pain. States that he has had chest pain for the past several days that has not resolved since being tested positive for COVID. He returns for evaluation, does not describe any shortness of breath, shortness of breath on exertion, palpitations, abdominal pain, abdominal distention, dysuria, hematuria, and edema. Related Data Previous Rx's Medication Instructions Recorded ibuprofen 800 mg PO Q8H PRN #30 tab 07/31/20 ondansetron HCl [Zofran] 4 mg PO Q8H PRN #10 tab 07/31/20 oxycodone 5 mg PO BID PRN #10 tab 07/31/20 tamsulosin [Flomax] 0.4 mg PO DAILY #10 cap 07/31/20 cyclobenzaprine 20 mg PO Q8H PRN #14 tab 09/22/20 lidocaine [Lidoderm] 1 patch TOPICAL DAILY #15 ea 09/22/20 naproxen 500 mg PO BID PRN #20 tab 09/22/20 Allergies Allergy/AdvReac Type Severity Reaction Status Date / Time No Known Allergies Allergy Verified 09/21/20 12:14 Review of Systems Review of Systems: Constitutional: No Weight loss, No Fever, No Chills, No Night Sweats, positive Fatigue, positive Malaise, positive COVID ENT/Mouth: No Hearing loss, No Ear Pain, No Nasal Congestion, No Sinus Pain, No Hoarseness, No sore throat, No Rhinorrhea, No Swallowing Difficulty Eyes: No Eye Pain, No Swelling, No Redness, No Foreign Body, No Discharge, No Vision Changes Cardiovascular: pos Chest Pain, No SOB, no Dyspnea on Exertion, No Orthopnea, No Edema, No Palpitations Respiratory: No Cough, No Sputum, No Wheezing, No Smoke Exposure, No Dyspnea Gastrointestinal: no Nausea, No Vomiting, No Diarrhea, No abdominal Pain, No Hematochezia, No Melena Genitourinary: No irregular bleeding, No Dysuria, No Urinary Frequency, No Hematuria, No Urinary Incontinence, No Urgency, No Flank Pain, No Urinary Flow Changes, No Hesitancy Musculoskeletal: No joint pain, No Myalgias, No Joint Swelling Skin: No Skin Lesions, No rash Neuro: No Weakness, No Numbness, No Paresthesias, No Loss of Consciousness, No Dizziness, No Headache Psych: No Anxiety/Panic, No Depression, No SI/HI/AH/VH Heme/Lymph: No Bruising, No Bleeding,No Lymphadenopathy Endocrine: No Polyuria, No Polydipsia, No Temperature Intolerance Yes all other systems are reviewed and are negative FOR[facility]LY [facility] Past Medical History Attestation statement: The following information was validated with the patient. Medical History No known health problems Social History Social History Alcohol intake: never Advance Directives: No Advance Directives Information Provided: Yes Physical Exam Vital Signs: Vital Signs: Last Vital Signs Temp 98.3 F 09/25/20 18:17 Pulse 102 H 09/25/20 22:48 Resp 16 09/25/20 22:48 BP 145/80 H 09/25/20 22:48 Pulse Ox 98 09/25/20 22:48 Body Mass Index 38.4 Appearance: Alert. Oriented X3. No acute distress. Eyes: Pupils equal, round and reactive to light. ENT: Pharynx normal. Neck: Normal inspection. Neck supple. CVS: Tachycardic heart rate and rhythm. Pulses normal. Respiratory: No respiratory distress. Breath sounds normal. Abdomen: Soft and nontender. Skin: Skin warm and dry. Normal skin color. Normal skin turgor. Extremities: No lower extremity edema. Neuro: No motor deficit. No sensory deficit. Course Course Course Narrative: 35-year-old male with known COVID positive presents with chest pain that has not resolved since his COVID testing. Plan of care is for chest x-ray, and to rule out ACS. Labs are within normal limits with the exception of BUN which is mildly elevated at 19, consistent with dehydration as he has had poor p.o. intake over the past 2 days. Plan of care to resuscitate with a L of fluid and have patient continue to drink plenty of fluids when he goes home. Patient verbalized understanding of and agrees to plan of care discharge home. MDM - Chest Pain Differential Diagnosis Differential diagnosis: Likely pneumothorax, stable angina, atypical chest pain, st elevation myocardial infarction and chest pain Medical Records Data Attestation: I reviewed the patient's medical records. Lab Data Attestation: I reviewed the patient's lab results. Result diagrams: 09/25/20 20:09 09/25/20 20:09 Labs: Lab Results 09/25/20 09/25/20 09/25/20 Range/Units 20:09 20:09 20:09 WBC 4.7 L (4.8-10.8) X10*3/uL RBC 5.73 (4.60-5.80) X10*6/uL Hgb 17.0 (14.0-18.0) g/dl Hct 50.8 (42-52) % MCV 88.7 (80-98) fL MCH 29.7 (27.0-33.0) pg MCHC 33.5 (31.0-36.0) g/dl RDW 12.3 (11.0-16.0) % Plt Count 300 (160-400) X10*3/uL MPV 9.3 L (9.4-12.4) fL Immature Gran % (Auto) 0.2 (0.0-0.4) % Neut % (Auto) 40.3 L (45-73) % Lymph % (Auto) 48.5 H (20-40) % [place] % (Auto) 10.4 (2-11) % Eos % (Auto) 0.2 (0-4) % Baso % (Auto) 0.4 (0-2) % Lymph # (Auto) 2.3 (1.2-4.9) X10*3/uL [place] # (Auto) 0.5 (0.1-1.2) X10*3/uL Eos # (Auto) 0.0 (0.0-0.4) X10*3/uL Baso # (Auto) 0.0 (0.0-0.2) X10*3/uL Abs Immat Gran (auto) 0.01 (0.00-0.03) X10*3/uL Absolute Neuts (auto) 1.9 L (2.0-8.3) X10*3/uL Absolute Nucleated RBC 0.000 (0.0-0.012) X10*3/uL Nucleated RBC % (auto) 0.0 (0.0-0.2) /100WBC Sodium 140 (135-145) mmol/L Potassium 4.2 (3.3-5.1) mmol/l Chloride 103 (96-108) mmol/L Carbon Dioxide 29 (22-29) mmol/L Anion Gap 12 (12-20) BUN 19 H D (9-16) mg/dL Creatinine 0.99 (0.5-1.4) mg/dL Estim Creat Clear Calc 122.2 Estimated GFR > 60 Random Glucose 102 (60-115) mg/dL Calcium 8.6 (8.4-10.2) mg/dL Troponin I High Sens < 3.5 (<3.5-35.0) ng/L Imaging Data Chest x-ray: Attestation: I personally reviewed and interpreted this imaging study as follows: Radiologist's impression: EXAMINATION: XR CHEST CLINICAL INFORMATION: Chest pain, COVID positive COMPARISON: 09/25/2020 at 10:11 AM TECHNIQUE: Frontal view of the chest was obtained. FINDINGS: Cardiomegaly mediastinal silhouette is stable. No dense consolidation. No pleural effusion or pneumothorax. Osseous structures are unremarkable. XR/XR chest 1V IMPRESSION: No acute cardiopulmonary process. ECG Data ECG #1: Attestation: I personally reviewed and interpreted this ECG as follows: ECG interpretation date: 09/25/20 ECG interpretation time: 18:06 Interpretation: Vent. Rate : 114 BPM Atrial Rate : 114 BPM P-R Int : 132 ms QRS Dur : 090 ms QT Int : 324 ms P-R-T Axes : 032 -22 039 degrees QTc Int : 446 ms Sinus tachycardia Minimal voltage criteria for LVH, may be normal variant Borderline ECG When compared with ECG of 22-SEP-2020 12:42, No significant change was found Scores Heart Score History: -0- slightly suspicious ECG: -0- normal Age: -0- < or = 45 Risk factory: -0- no risk factors known Troponin: -0- < or = normal limit Score: 0 Risk: 1.7% Discharge Plan Discharge Clinical Impression: Acute dehydration Patient Disposition: Home, Self-Care Instructions: Dehydration (ED), COVID-19 (Coronavirus Disease 2019) (ED) Additional Instructions: You were evaluated for chest pain. Your EKG is not tachycardia which is suspected to be because of dehydration. We gave him 1 L of fluid. Please continue to drink fluids when you get home. Your lab values indicate mild dehydration, your chest x-ray is negative for acute findings, your cardiac enzymes are negative. Thank you for choosing this emergency department for evaluation. Please follow-up with primary care physician as needed. Return to the emergency department for any new, concerning, or worsening symptoms. Prescriptions: No Action ibuprofen 800 mg tablet 800 mg PO Q8H PRN (Reason: pain) Qty: 30 RF: 0 ondansetron HCl [Zofran] 4 mg tablet 4 mg PO Q8H PRN (Reason: nausea and vomiting) Qty: 10 RF: 0 tamsulosin [Flomax] 0.4 mg capsule 0.4 mg PO DAILY Qty: 10 RF: 0 oxycodone 5 mg tablet 5 mg PO BID PRN (Reason: pain) Qty: 10 RF: 0 cyclobenzaprine 10 mg tablet 20 mg PO Q8H PRN (Reason: muscle spasm) Qty: 14 RF: 0 naproxen 500 mg tablet 500 mg PO BID PRN (Reason: pain) Qty: 20 RF: 0 lidocaine [Lidoderm] 5 % adhesive patch,medicated 1 patch topical DAILY Qty: 15 RF: 0 Interventions: ED Discharge Assessment Last Done: 09/25/20 23:03 Discharge Date/Time: 09/25/20 23:06
--- NOTE | 2020-09-25 19:19 | XR_ITS ---
EXAMINATION: XR CHEST CLINICAL INFORMATION: Chest pain, COVID positive COMPARISON: 09/25/2020 at 10:11 AM TECHNIQUE: Frontal view of the chest was obtained. FINDINGS: Cardiomegaly mediastinal silhouette is stable. No dense consolidation. No pleural effusion or pneumothorax. Osseous structures are unremarkable. XR/XR chest 1V IMPRESSION: No acute cardiopulmonary process.
[2020-09-25 20:16] LABS: MANUAL DIFF FLAG NO
[2020-09-25 20:21] LABS: Basophils Percent Auto 0.4 % (0-2); Eosinophils Percent Auto 0.2 % (0-4); Hematocrit 50.8 % (42-52); Imm Gran Abs Auto 0.01 X10*3/uL (0.00-0.03); Imm Gran Pct Auto 0.2 % (0.0-0.4); Lymphocytes Absolute Auto 2.3 X10*3/uL (1.2-4.9); Lymphocytes Percent Auto 48.5 % (20-40); Mean Corpuscular HGB Conc 33.5 g/dl (31.0-36.0); Mean Corpuscular Hemoglobin 29.7 pg (27.0-33.0); Mean Corpuscular Volume 88.7 fL (80-98); Mean Platelet Volume 9.3 fL (9.4-12.4); Monocytes Absolute Auto 0.5 X10*3/uL (0.1-1.2); Monocytes Percent Auto 10.4 % (2-11); Neutrophils Absolute Auto 1.9 X10*3/uL (2.0-8.3); Neutrophils Percent Auto 40.3 % (45-73); Platelet Count 300 X10*3/uL (160-400); Red Blood Count 5.73 X10*6/uL (4.60-5.80); Red Cell Distribution Width 12.3 % (11.0-16.0); White Blood Count 4.7 X10*3/uL (4.8-10.8)
[2020-09-25 20:36] LABS: Anion Gap 12 (12-20); Blood Urea Nitrogen 19 mg/dL (9-16); Calcium 8.6 mg/dL (8.4-10.2); Carbon Dioxide 29 mmol/L (22-29); Chloride 103 mmol/L (96-108); Creatinine Clr Calc Pharmacy 122.2; Estimated Glomerular Filt Rate > 60; Glucose Random 102 mg/dL (60-115); Potassium 4.2 mmol/l (3.3-5.1); Sodium 140 mmol/L (135-145)
[2020-09-25 20:44] LABS: Troponin-I High Sensitivity < 3.5 ng/L (<3.5-35.0)
[2020-09-25 21:13] VITALS: PULSE 120; O2SAT 98
--- NOTE | 2020-09-25 21:15 | PC.NURSE ---
ROLLER CHECKER at bedside requesting 1 li of NS to be hung, this RN hanging NS 1 li. VSS at this time.
[2020-09-25] MEDS: 0.9 % Sodium Chloride 1,000 ML 999 ML IV (21:32)
[2020-09-25 22:48] VITALS: BP 145/80; PULSE 102; RESP 16; O2SAT 98
--- NOTE | 2020-09-25 23:05 | PC.NURSE ---
PT DISCHARGED HOME, HR CAME DOWN FROM 130 TO 106 FOLLOWING 1 L NS BOLUS. PT NEVER EXPERIENCING ANY RESPIRATORY DISTRESS OR DYSPNEA.
== END 2020-09-25 23:06 | disposition home or self-care (01) ==
PROVIDERS: Nurse Practitioner Family; Emergency Provider Emergency Medicine
DX: E86.0 Dehydration (principal); R07.9 Chest pain, unspecified; Z86.19 Personal history of other infectious and parasitic diseases
CPT/HCPCS: 36415; 71045; 80048; 84484; 85025; 93005; 96360; 99283; 99284

== ENCOUNTER 2020-09-27 19:53 | Emergency (ER) | payer MEDICARE, MEDICAID, SELFPAY ==
[2020-09-27 19:54] VITALS: BP 120/60; BP 134/77; PULSE 110; PULSE 99; RESP 18; TEMP 37.1; O2SAT 97; BMI 38.7
[2020-09-27 20:11] LABS: MANUAL DIFF FLAG NO
[2020-09-27 20:12] LABS: Basophils Percent Auto 0.2 % (0-2); Eosinophils Percent Auto 0.2 % (0-4); Hematocrit 49.3 % (42-52); Hemoglobin 16.4 g/dl (14.0-18.0); Imm Gran Abs Auto 0.01 X10*3/uL (0.00-0.03); Imm Gran Pct Auto 0.2 % (0.0-0.4); Lymphocytes Absolute Auto 2.8 X10*3/uL (1.2-4.9); Lymphocytes Percent Auto 47.2 % (20-40); Mean Corpuscular HGB Conc 33.3 g/dl (31.0-36.0); Mean Corpuscular Hemoglobin 29.5 pg (27.0-33.0); Mean Corpuscular Volume 88.7 fL (80-98); Mean Platelet Volume 9.3 fL (9.4-12.4); Monocytes Absolute Auto 0.6 X10*3/uL (0.1-1.2); Monocytes Percent Auto 9.4 % (2-11); Neutrophils Absolute Auto 2.5 X10*3/uL (2.0-8.3); Neutrophils Percent Auto 42.8 % (45-73); Platelet Count 296 X10*3/uL (160-400); Red Blood Count 5.56 X10*6/uL (4.60-5.80); Red Cell Distribution Width 11.9 % (11.0-16.0); White Blood Count 5.9 X10*3/uL (4.8-10.8)
--- NOTE | 2020-09-27 20:19 | CT_ITS ---
EXAMINATION: CT ABDOMEN AND PELVIS WITH CONTRAST CLINICAL INFORMATION: Right lower quadrant pain COMPARISON: 07/31/2020, CTA 09/21/2020 TECHNIQUE: Multidetector volumetric images were obtained from the superior aspect of the liver through the pubic symphysis following administration 85 mL of Omnipaque 350 intravenous contrast. Sagittal and coronal reformatted images were obtained on the technologist's workstation. Oral contrast: No This CT examination was performed using dose optimization techniques as appropriate, variously including the following: *Automated exposure control *Adjustment of mA and/or kV according to patient size (this includes techniques or standardized protocols for targeted exams where dose is matched to indication/reason for exam; i.e. extremities or head) *Use of iterative reconstruction technique DLP: 743 mGy-cm FINDINGS: LUNG BASES: There is carried ill-defined patchy and nodular opacities at the lung bases; an infectious etiology is possible. LIVER, GALLBLADDER, AND BILIARY TREE: The liver is normal in size, shape, and attenuation. No focal hepatic lesion or biliary ductal dilatation is present. The gallbladder is unremarkable with no evidence of radiopaque gallstones, gallbladder wall thickening, or obvious pericholecystic inflammatory changes. PANCREAS: Unremarkable. SPLEEN: Unremarkable. ADRENAL GLANDS: Unremarkable. KIDNEYS AND URETERS: Resolved left hydronephrosis. No hydronephrosis bilaterally. The kidneys are normal in size, shape, and attenuation. No calculi seen. No perinephric stranding. BLADDER: Unremarkable. GASTROINTESTINAL TRACT: Stomach and small bowel are nondilated. The appendix is not seen but there are no right lower quadrant inflammatory changes. No evidence of colitis or diverticulitis. Several subcentimeter right lower quadrant lymph nodes are present. ABDOMINAL WALL: No significant hernia is appreciated. LYMPH NODES: No retroperitoneal or iliac lymphadenopathy. Several right lower quadrant lymph nodes are again noted. VASCULAR: Normal caliber abdominal aorta PELVIC VISCERA: The prostate and seminal vesicles are unremarkable. OSSEOUS STRUCTURES: Chronic L5 pars defects with grade 1 anterolisthesis at L5-S1. CT/CT abdomen pelvis w con IMPRESSION: No acute CT findings. No evidence of appendicitis. Several right lower quadrant lymph nodes are present. Mesenteric adenitis give this appearance. Resolved left hydronephrosis. There are patchy and nodular opacities at the lung bases, similar to the prior study 09/21/2020. The distribution is somewhat unusual for atelectasis. An infectious or inflammatory etiology are possible.
--- NOTE | 2020-09-27 20:20 | ED.ABDPAIN ---
HPI - Abdominal Pain General Chief Complaint: Abdominal Pain Stated Complaint: BACK PAIN WITH BREATHING,RECENT + COVID Time Seen by Provider: 09/27/20 20:01 Source: patient Mode of arrival: ambulatory Limitations: no limitations History of Present Illness HPI narrative: Patient comes to the emergency room complaining of right lower quadrant pain. This is the patient's 5th ED visit this month. Patient has been seen for dehydration, chest pain, and testing positive for COVID. Patient states this morning he was lying down watching TV and had a sudden onset of right lower quadrant pain. Patient states it is still present, constant. MD elicited complaint: abdominal pain Related Data Previous Rx's Medication Instructions Recorded ibuprofen 800 mg PO Q8H PRN #30 tab 07/31/20 ondansetron HCl [Zofran] 4 mg PO Q8H PRN #10 tab 07/31/20 oxycodone 5 mg PO BID PRN #10 tab 07/31/20 tamsulosin [Flomax] 0.4 mg PO DAILY #10 cap 07/31/20 cyclobenzaprine 20 mg PO Q8H PRN #14 tab 09/22/20 lidocaine [Lidoderm] 1 patch TOPICAL DAILY #15 ea 09/22/20 naproxen 500 mg PO BID PRN #20 tab 09/22/20 Allergies Allergy/AdvReac Type Severity Reaction Status Date / Time No Known Allergies Allergy Verified 09/21/20 12:14 Review of Systems Review of Systems Constitutional : Complaining of generalized malaise and weakness ENT/Mouth : No Hearing loss, No Ear Pain, No Nasal Congestion, No Sinus Pain, No Hoarseness, No sore throat, No Rhinorrhea, No Swallowing Difficulty Eyes: No Eye Pain, No Swelling, No Redness, No Foreign Body, No Discharge, No Vision Changes Cardiovascular : No Chest Pain, No SOB, No Dyspnea on Exertion, No Orthopnea, No Edema, No Palpitations Respiratory : No Cough, No Sputum, No Wheezing, No Smoke Exposure, No Dyspnea Gastrointestinal : No Nausea, No Vomiting, No Diarrhea, No Constipation, complaining of mild to moderate right lower quadrant pain, No Hematochezia, No Melena Genitourinary : no irregular bleeding, No Dysuria, No Urinary Frequency, No Hematuria, No Urinary Incontinence, No Urgency, No Flank Pain, No Urinary Flow Changes, No Hesitancy Musculoskeletal : No joint pain, No Myalgias, No Joint Swelling Skin : No Skin Lesions, No rash Neuro : No Weakness, No Numbness, No Paresthesias, No Loss of Consciousness, No Dizziness, No Headache Psych : No Anxiety/Panic, No Depression, No SI/HI/AH/VH, No Social Issues, Heme/Lymph: No Bruising, No Bleeding,No Lymphadenopathy Endocrine : No Polyuria, No Polydipsia, No Temperature Intolerance Physical Exam Vital Signs: Vital Signs: Last Vital Signs Temp 98.8 F 09/27/20 19:54 Pulse 110 H 09/27/20 19:54 Resp 18 09/27/20 19:54 BP 134/77 09/27/20 19:54 Pulse Ox 97 09/27/20 19:54 Body Mass Index 38.7 Appearance: Alert. Oriented X3. No acute distress. Eyes: Pupils equal, round and reactive to light. ENT: Pharynx normal. Neck: Normal inspection. Neck supple. No lymph nodes noted. No crepitus CVS: Normal heart rate and rhythm. Pulses normal. Normal S1 and S2 Respiratory: No respiratory distress. Breath sounds normal. No Wheezing. No rales Abdomen: Soft and [id number] tenderness on deep palpation to right lower quadrant, no guarding, no rebound tenderness. No rigidity. No distention. good BS x4 Skin: Skin warm and dry. Normal skin color. Normal skin turgor. Extremities: No lower extremity edema. No lower extremity edema. No Lacerations. No Rash Neuro: Oriented X 3. No motor deficit. No sensory deficit. Moving all extermities. No slurred speech. Course Course Course Narrative: I discussed the labs and the CT scan with the patient, no acute findings. Patient instructed to follow-up with his primary care physician and to remain in quarantine until he completes 14 days. Prior to discharge, patient mentioned that he is concerned that his chest hair is falling off. He believes that he is also losing hair in his forearms. Patient states that he is not losing hair from his head. I discussed with the patient to follow up with his primary care physician, as he may need to have further workup and possibly be be evaluated for autoimmune conditions MDM - Abdominal Pain Lab Data Result diagrams: 09/27/20 20:03 09/27/20 20:03 Labs: Lab Results 09/27/20 09/27/20 09/27/20 Range/Units 20:03 20:03 20:03 WBC 5.9 (4.8-10.8) X10*3/uL RBC 5.56 (4.60-5.80) X10*6/uL Hgb 16.4 (14.0-18.0) g/dl Hct 49.3 (42-52) % MCV 88.7 (80-98) fL MCH 29.5 (27.0-33.0) pg MCHC 33.3 (31.0-36.0) g/dl RDW 11.9 (11.0-16.0) % Plt Count 296 (160-400) X10*3/uL MPV 9.3 L (9.4-12.4) fL Immature Gran % (Auto) 0.2 (0.0-0.4) % Neut % (Auto) 42.8 L (45-73) % Lymph % (Auto) 47.2 H (20-40) % [place] % (Auto) 9.4 (2-11) % Eos % (Auto) 0.2 (0-4) % Baso % (Auto) 0.2 (0-2) % Lymph # (Auto) 2.8 (1.2-4.9) X10*3/uL [place] # (Auto) 0.6 (0.1-1.2) X10*3/uL Eos # (Auto) 0.0 (0.0-0.4) X10*3/uL Baso # (Auto) 0.0 (0.0-0.2) X10*3/uL Abs Immat Gran (auto) 0.01 (0.00-0.03) X10*3/uL Absolute Neuts (auto) 2.5 (2.0-8.3) X10*3/uL Absolute Nucleated RBC 0.000 (0.0-0.012) X10*3/uL Nucleated RBC % (auto) 0.0 (0.0-0.2) /100WBC Hold Blue Top SEE NOTE Sodium 140 (135-145) mmol/L Potassium 4.0 (3.3-5.1) mmol/l Chloride 101 (96-108) mmol/L Carbon Dioxide 29 (22-29) mmol/L Anion Gap 14 (12-20) BUN 17 H (9-16) mg/dL Creatinine 0.96 (0.5-1.4) mg/dL Estim Creat Clear Calc 126.6 Estimated GFR > 60 Random Glucose 99 (60-115) mg/dL Calcium 8.9 (8.4-10.2) mg/dL Total Bilirubin 0.5 (0.0-1.0) mg/dL AST 29 (5-37) U/L ALT 36 (0-40) U/L Alkaline Phosphatase 68 D (39-117) U/L Total Protein 7.3 (6.5-8.0) g/dL Albumin 4.4 (3.5-5.0) g/dL Urine Color Urine Appearance Urine pH (5.0-8.0) Ur Specific [place] (1.005-1.025) Urine Protein (NEG-TRACE) MG/DL Urine Glucose (UA) (NEG) MG/DL Urine Ketones (NEG) MG/DL Urine Blood (NEG) Urine Nitrite (NEG) Ur Leukocyte Esterase (NEG) Urine RBC (0) /HPF Urine WBC (0-4) /HPF Ur Squamous Epith Cells /LPF Urine Bacteria /LPF 09/27/ Range/Units 20:36 WBC (4.8-10.8) X10*3/uL RBC (4.60-5.80) X10*6/uL Hgb (14.0-18.0) g/dl Hct (42-52) % MCV (80-98) fL MCH (27.0-33.0) pg MCHC (31.0-36.0) g/dl RDW (11.0-16.0) % Plt Count (160-400) X10*3/uL MPV (9.4-12.4) fL Immature Gran % (Auto) (0.0-0.4) % Neut % (Auto) (45-73) % Lymph % (Auto) (20-40) % [place] % (Auto) (2-11) % Eos % (Auto) (0-4) % Baso % (Auto) (0-2) % Lymph # (Auto) (1.2-4.9) X10*3/uL [place] # (Auto) (0.1-1.2) X10*3/uL Eos # (Auto) (0.0-0.4) X10*3/uL Baso # (Auto) (0.0-0.2) X10*3/uL Abs Immat Gran (auto) (0.00-0.03) X10*3/uL Absolute Neuts (auto) (2.0-8.3) X10*3/uL Absolute Nucleated RBC (0.0-0.012) X10*3/uL Nucleated RBC % (auto) (0.0-0.2) /100WBC Hold Blue Top Sodium (135-145) mmol/L Potassium (3.3-5.1) mmol/l Chloride (96-108) mmol/L Carbon Dioxide (22-29) mmol/L Anion Gap (12-20) BUN (9-16) mg/dL Creatinine (0.5-1.4) mg/dL Estim Creat Clear Calc Estimated GFR Random Glucose (60-115) mg/dL Calcium (8.4-10.2) mg/dL Total Bilirubin (0.0-1.0) mg/dL AST (5-37) U/L ALT (0-40) U/L Alkaline Phosphatase (39-117) U/L Total Protein (6.5-8.0) g/dL Albumin (3.5-5.0) g/dL Urine Color YELLOW Urine Appearance CLEAR Urine pH 6.0 (5.0-8.0) Ur Specific [place] 1.010 (1.005-1.025) Urine Protein NEG (NEG-TRACE) MG/DL Urine Glucose (UA) NEG (NEG) MG/DL Urine Ketones 15 (NEG) MG/DL Urine Blood TRACE (NEG) Urine Nitrite NEG (NEG) Ur Leukocyte Esterase NEG (NEG) Urine RBC 0-2 (0) /HPF Urine WBC 0 (0-4) /HPF Ur Squamous Epith Cells NONE /LPF Urine Bacteria TRACE /LPF Imaging Data CT scan - abdomen: Radiologist's impression: FINDINGS: LUNG BASES: There is carried ill-defined patchy and nodular opacities at the lung bases; an infectious etiology is possible. LIVER, GALLBLADDER, AND BILIARY TREE: The liver is normal in size, shape, and attenuation. No focal hepatic lesion or biliary ductal dilatation is present. The gallbladder is unremarkable with no evidence of radiopaque gallstones, gallbladder wall thickening, or obvious pericholecystic inflammatory changes. PANCREAS: Unremarkable. SPLEEN: Unremarkable. ADRENAL GLANDS: Unremarkable. KIDNEYS AND URETERS: Resolved left hydronephrosis. No hydronephrosis bilaterally. The kidneys are normal in size, shape, and attenuation. No calculi seen. No perinephric stranding. BLADDER: Unremarkable. GASTROINTESTINAL TRACT: Stomach and small bowel are nondilated. The appendix is not seen but there are no right lower quadrant inflammatory changes. No evidence of colitis or diverticulitis. Several subcentimeter right lower quadrant lymph nodes are present. ABDOMINAL WALL: No significant hernia is appreciated. LYMPH NODES: No retroperitoneal or iliac lymphadenopathy. Several right lower quadrant lymph nodes are again noted. VASCULAR: Normal caliber abdominal aorta PELVIC VISCERA: The prostate and seminal vesicles are unremarkable. OSSEOUS STRUCTURES: Chronic L5 pars defects with grade 1 anterolisthesis at L5-S1. CT/CT abdomen pelvis w con IMPRESSION: No acute CT findings. No evidence of appendicitis. Several right lower quadrant lymph nodes are present. Mesenteric adenitis give this appearance. Resolved left hydronephrosis. Discharge Plan Discharge Clinical Impression: Abdominal pain Qualifiers: Abdominal location: right lower quadrant Qualified Code(s): R10.31 - Right lower quadrant pain Patient Disposition: Home, Self-Care Instructions: Abdominal Pain (ED) Additional Instructions: Please follow-up with your primary care physician tomorrow. If you have any worsening or new symptoms, please return to the emergency room or call 911 Prescriptions: No Action ibuprofen 800 mg tablet 800 mg PO Q8H PRN (Reason: pain) Qty: 30 RF: 0 ondansetron HCl [Zofran] 4 mg tablet 4 mg PO Q8H PRN (Reason: nausea and vomiting) Qty: 10 RF: 0 tamsulosin [Flomax] 0.4 mg capsule 0.4 mg PO DAILY Qty: 10 RF: 0 oxycodone 5 mg tablet 5 mg PO BID PRN (Reason: pain) Qty: 10 RF: 0 cyclobenzaprine 10 mg tablet 20 mg PO Q8H PRN (Reason: muscle spasm) Qty: 14 RF: 0 naproxen 500 mg tablet 500 mg PO BID PRN (Reason: pain) Qty: 20 RF: 0 lidocaine [Lidoderm] 5 % adhesive patch,medicated 1 patch topical DAILY Qty: 15 RF: 0 PMFSH Past Medical History Medical History No known health problems Social History Social History Alcohol intake: never Advance Directives: No Advance Directives Information Provided: No
[2020-09-27 20:34] LABS: Alanine Aminotransferase 36 U/L (0-40); Albumin Level 4.4 g/dL (3.5-5.0); Alkaline Phosphatase 68 U/L (39-117); Anion Gap 14 (12-20); Aspartate Amino Transferase 29 U/L (5-37); Bilirubin Total 0.5 mg/dL (0.0-1.0); Blood Urea Nitrogen 17 mg/dL (9-16); Calcium 8.9 mg/dL (8.4-10.2); Carbon Dioxide 29 mmol/L (22-29); Chloride 101 mmol/L (96-108); Creatinine Clr Calc Pharmacy 126.6; Estimated Glomerular Filt Rate > 60; Glucose Random 99 mg/dL (60-115); Sodium 140 mmol/L (135-145); Total Protein 7.3 g/dL (6.5-8.0)
[2020-09-27] MEDS: 0.9 % Sodium Chloride 1,000 ML 999 ML IVCONT (20:35)
[2020-09-27 20:54] LABS: Glucose Urine UA NEG (NEG); Leukocyte Esterase Urine NEG (NEG); Nitrite Urine NEG (NEG); Urine Blood TRACE (NEG); Urine Ketones 15 MG/DL (NEG); Urine Protein NEG (NEG-TRACE)
[2020-09-27 20:55] LABS: Appearance Urine CLEAR; Color Urine YELLOW
[2020-09-27 21:02] LABS: Bacteria Urine TRACE /LPF; RBC Urine 0-2 /HPF (0); WBC Urine 0 /HPF (0-4)
[2020-09-27] MEDS: iohexoL 350 MG/ML 100 ML INFUS..BTL IV (21:41)
[2020-09-27 22:10] VITALS: BP 118/81; PULSE 87; RESP 16; TEMP 36.3; O2SAT 98
== END 2020-09-27 22:29 | disposition home or self-care (01) ==
PROVIDERS: Emergency Provider Emergency Medicine
DX: R10.31 Right lower quadrant pain (principal); Z86.19 Personal history of other infectious and parasitic diseases
CPT/HCPCS: 36415; 74177; 80053; 81001; 85025; 96360; 99284; Q9967

== ENCOUNTER 2020-09-30 06:49 | Emergency (ER) | payer MEDICARE, MEDICAID, SELFPAY ==
--- NOTE | 2020-09-30 07:15 | ED_ITS ---
HPI - General Adult General Chief complaint: Abdominal Pain Stated complaint: right flank pain Time Seen by Provider: 09/30/20 07:15 Source: patient and corporate travel expert Mode of arrival: ambulatory Limitations: no limitations History of Present Illness HPI narrative: c/o R flank pain and diarrhea hx of renal colic but also c/o anxiety and diff sleeping just started atarax by his PCP yesterday also c/o erectile dysfunction x 3 days MD complaint: R flank pain and suprapubic pain, diff sleeping Onset (ago): day(s) (yesterday) Location: abdomen Radiation: non-radiation Severity: moderate Quality: aching Pain Consistency: constant Relieving factors: none Exacerbating factors: none Associated symptoms: other (diarrhea) Related Data Previous Rx's Medication Instructions Recorded ibuprofen 800 mg PO Q8H PRN #30 tab 07/31/20 ondansetron HCl [Zofran] 4 mg PO Q8H PRN #10 tab 07/31/20 oxycodone 5 mg PO BID PRN #10 tab 07/31/20 tamsulosin [Flomax] 0.4 mg PO DAILY #10 cap 07/31/20 cyclobenzaprine 20 mg PO Q8H PRN #14 tab 09/22/20 lidocaine [Lidoderm] 1 patch TOPICAL DAILY #15 ea 09/22/20 naproxen 500 mg PO BID PRN #20 tab 09/22/20 Allergies Allergy/AdvReac Type Severity Reaction Status Date / Time No Known Allergies Allergy Verified 09/21/20 12:14 Review of Systems Review of Systems: Constitutional : No Weight loss, No Fever, No Chills ENT/Mouth : No sore throat, No Rhinorrhea Eyes: No Swelling, No Redness Cardiovascular : No Chest Pain, No SOB, NoEdema Respiratory : No Cough, No Sputum, No Wheezing Gastrointestinal : no Nausea, no Vomiting, positive Diarrhea, positive abdominal Pain, No Hematochezia, No Melena Genitourinary : No Dysuria, No Urinary Frequency, No Hematuria, No Urgency Musculoskeletal : No joint pain, No Myalgias, No Joint Swelling Skin : No Skin Lesions, No rash Neuro : No Weakness, No Numbness, No Dizziness, No Headache Psych : No Anxiety/Panic, No Depression Heme/Lymph: No Bruising, No Lymphadenopathy Endocrine : No Polyuria, No Polydipsia All other systems reviewed and are negative. [facility] Past Medical History Attestation statement: The following information was validated with the patient. Medical History No known health problems Renal colic Social History Social History Alcohol intake: never Smoking Status: Never smoker Use of substances other than those prescribed or required for medical reasons: No Advance Directives: No Advance Directives Information Provided: Yes Physical Exam Vital Signs: Vital Signs: Last Vital Signs Temp 98.0 F 09/30/20 09:58 Pulse 100 09/30/20 09:58 Resp 20 09/30/20 09:58 BP 133/82 09/30/20 09:58 Pulse Ox 99 09/30/20 09:58 Body Mass Index 35.2 Appearance: Alert. Oriented X3. No acute distress. Eyes: Pupils equal, round and reactive to light. ENT: Pharynx normal. Neck: Normal inspection. Neck supple. CVS: Normal heart rate and rhythm. Pulses normal. Respiratory: No respiratory distress. Breath sounds normal. Abdomen: Soft and mild suprapubic R side ttp Skin: Skin warm and dry. Normal skin color. Normal skin turgor. Extremities: No lower extremity edema. No calf ttp Neuro: Oriented X 3. No motor deficit. No sensory deficit. Course Course Course Narrative: negative CT scan and UA at this time, stable for DC Medical Decision Making MDM Narrative Medical decision making narrative: 35 yo male s/p COVID on 09/20 per him here with R flank pain and diarrhea feels similar to prior stones - at this time will obtain UA and CT scan also c/o anxiety but his PCP just started him on medications I told him to give it some time, he has no SI, also compalined of ED this is not an acute issue started around anxiety can follow up with his PCP Lab Data Labs: Lab Results 09/30/20 Range/Units 07:50 Urine Color YELLOW Urine Appearance CLEAR Urine pH 6.0 (5.0-8.0) Ur Specific [place] 1.025 (1.005-1.025) Urine Protein NEG (NEG-TRACE) MG/DL Urine Glucose (UA) NEG (NEG) MG/DL Urine Ketones >=80 (NEG) MG/DL Urine Blood TRACE (NEG) Urine Nitrite NEG (NEG) Ur Leukocyte Esterase NEG (NEG) Urine RBC 0-2 (0) /HPF Urine WBC 0-2 (0-4) /HPF Ur Squamous Epith Cells NONE /LPF Urine Bacteria NONE /LPF Discharge Plan Discharge Clinical Impression: Acute right flank pain, Anxiety Patient Disposition: Home, Self-Care Instructions: Flank Pain (ED) Additional Instructions: return to ED for any worsening symptoms or concerns YOUR URINE WAS NORMAL YOU HAVE NO STONES ON EXAM, THERE IS NO KIDNEY STONES, PLEASE HYDRATE, TAKE YOUR MEDICATIONS AND FOLLOW WITH YOUR DOCTOR Prescriptions: No Action ibuprofen 800 mg tablet 800 mg PO Q8H PRN (Reason: pain) Qty: 30 RF: 0 ondansetron HCl [Zofran] 4 mg tablet 4 mg PO Q8H PRN (Reason: nausea and vomiting) Qty: 10 RF: 0 tamsulosin [Flomax] 0.4 mg capsule 0.4 mg PO DAILY Qty: 10 RF: 0 oxycodone 5 mg tablet 5 mg PO BID PRN (Reason: pain) Qty: 10 RF: 0 cyclobenzaprine 10 mg tablet 20 mg PO Q8H PRN (Reason: muscle spasm) Qty: 14 RF: 0 naproxen 500 mg tablet 500 mg PO BID PRN (Reason: pain) Qty: 20 RF: 0 lidocaine [Lidoderm] 5 % adhesive patch,medicated 1 patch topical DAILY Qty: 15 RF: 0 Referrals: Physician,Unknown [Primary Care Provider] - 2 days (IF NOT BETTER) Print Language: Australian
[2020-09-30 07:17] VITALS: BP 124/68; BP 132/91; PULSE 92; RESP 18; TEMP 36.8; O2SAT 98; BMI 35.2
--- NOTE | 2020-09-30 07:25 | CT_ITS ---
EXAMINATION: CT ABDOMEN AND PELVIS WITHOUT CONTRAST CLINICAL INFORMATION: Right flank pain. COMPARISON: CT abdomen and pelvis 09/27/2020. TECHNIQUE: Multidetector volumetric imaging was performed from the superior aspect of the liver through the pubic symphysis. Sagittal and coronal reformatted images were obtained on the technologist's workstation. This CT examination was performed using dose optimization techniques as appropriate, variously including the following: *Automated exposure control *Adjustment of mA and/or kV according to patient size (this includes techniques or standardized protocols for targeted exams where dose is matched to indication/reason for exam; i.e. extremities or head) *Use of iterative reconstruction technique DLP: 799 mGy-cm FINDINGS: LUNG BASES: There is a 1 mm calcified lung nodule left lower lobe axial image 8, ill-defined 3 mm nodular density in lingula axial image 18. Heart size is normal. LIVER, GALLBLADDER, AND BILIARY TREE: The liver is normal in size, shape, and attenuation. No focal hepatic lesion or biliary ductal dilatation is present. The gallbladder is unremarkable with no evidence of radiopaque gallstones, gallbladder wall thickening, or obvious pericholecystic inflammatory changes. PANCREAS: Unremarkable. SPLEEN: Unremarkable. ADRENAL GLANDS: Unremarkable. KIDNEYS AND URETERS: The kidneys are normal in size, shape, and attenuation. No hydronephrosis, hydroureter, or calculi seen. No perinephric stranding. BLADDER: Unremarkable. GASTROINTESTINAL TRACT: The small and large bowel are unremarkable. The appendix is unremarkable. There are small right lower quadrant lymph nodes, nonspecific, similar to previous study. ABDOMINAL WALL: No significant hernia is appreciated. LYMPH NODES: Normal. VASCULAR: Unremarkable. PELVIC VISCERA: There is no free air or free fluid. OSSEOUS STRUCTURES: No lytic or sclerotic process seen. Grade 1 anterolisthesis L5 on S1 is noted. CT/CT abdomen pelvis wo con IMPRESSION: No acute intra-abdominal process seen. Small right lower quadrant mesenteric lymph nodes are stable compared to previous study 09/27/2020
[2020-09-30 07:59] LABS: Glucose Urine UA NEG (NEG); Leukocyte Esterase Urine NEG (NEG); Nitrite Urine NEG (NEG); Specific Gravity - Urine 1.025 (1.005-1.025); Urine Blood TRACE (NEG); Urine Ketones >=80 MG/DL (NEG); Urine Protein NEG (NEG-TRACE)
[2020-09-30 08:04] LABS: Appearance Urine CLEAR; Color Urine YELLOW
[2020-09-30 08:14] LABS: RBC Urine 0-2 /HPF (0); WBC Urine 0-2 /HPF (0-4)
[2020-09-30 09:58] VITALS: BP 133/82; PULSE 100; RESP 20; TEMP 36.7; O2SAT 99
== END 2020-09-30 11:04 | disposition home or self-care (01) ==
PROVIDERS: Emergency Provider Emergency Medicine
DX: R10.9 Unspecified abdominal pain (principal); F41.9 Anxiety disorder, unspecified; Z79.899 Other long term (current) drug therapy
CPT/HCPCS: 74176; 81001; 81003; 99284

== ENCOUNTER 2020-09-30 11:16 | Outpatient (REF) | payer MEDICARE, MEDICAID, SELFPAY | END 2020-09-30 11:17 | disposition home or self-care (01) | LOC: HO.LAB 11:16 | PROVIDERS: PCP Family Medicine; Visit Provider Internal Medicine | DX: Z20.828 Contact with and (suspected) exposure to other viral communicable diseases (principal) | CPT/HCPCS: C9803; U0003 ==

== ENCOUNTER 2020-10-07 17:39 | Emergency (ER) | payer MEDICARE, MEDICAID, SELFPAY ==
[2020-10-07 23:45] VITALS: BP 151/83; PULSE 90; RESP 16; TEMP 36.6; O2SAT 98; BMI 38.3
--- NOTE | 2020-10-08 00:20 | CT_ITS ---
EXAMINATION: CT ABDOMEN AND PELVIS WITHOUT CONTRAST CLINICAL INFORMATION: History of kidney stones. Pelvic/flank pain. COMPARISON: 09/30/2020 TECHNIQUE: Multidetector volumetric imaging was performed from the superior aspect of the liver through the pubic symphysis. Sagittal and coronal reformatted images were obtained on the technologist's workstation. This CT examination was performed using dose optimization techniques as appropriate, variously including the following: *Automated exposure control *Adjustment of mA and/or kV according to patient size (this includes techniques or standardized protocols for targeted exams where dose is matched to indication/reason for exam; i.e. extremities or head) *Use of iterative reconstruction technique DLP: 716 mGy-cm FINDINGS: LUNG BASES: The visualized lung bases are unremarkable. LIVER, GALLBLADDER, AND BILIARY TREE: The liver is normal in size, shape, and attenuation. No focal hepatic lesion or biliary ductal dilatation is present. The gallbladder is unremarkable with no evidence of radiopaque gallstones, gallbladder wall thickening, or obvious pericholecystic inflammatory changes. PANCREAS: Unremarkable. SPLEEN: Unremarkable. ADRENAL GLANDS: Unremarkable. KIDNEYS AND URETERS: The kidneys are normal in size, shape, and attenuation. No hydronephrosis, hydroureter, or calculi seen. No perinephric stranding. BLADDER: Unremarkable. GASTROINTESTINAL TRACT: The stomach is unremarkable. Normal caliber small bowel. There is no obstruction. Normal appendix. No colonic wall thickening or inflammatory change. No free air or free fluid. ABDOMINAL WALL: No significant hernia is appreciated. LYMPH NODES: Normal. VASCULAR: Unremarkable. PELVIC VISCERA: The prostate and seminal vesicles are unremarkable. OSSEOUS STRUCTURES: No acute or suspicious osseous abnormality. Bilateral L5 pars defects with grade 1 anterolisthesis of L5 on S1. CT/CT abdomen pelvis wo con IMPRESSION: No acute findings of the abdomen or pelvis. No hydronephrosis or nephrolithiasis.
[2020-10-08 00:25] LABS: Appearance Urine CLEAR; Color Urine YELLOW; Glucose Urine UA NEG (NEG); Leukocyte Esterase Urine NEG (NEG); Nitrite Urine NEG (NEG); PH 5.5 (5.0-8.0); Specific Gravity - Urine >= 1.030 (1.005-1.025); Urine Blood NEG (NEG); Urine Ketones NEG (NEG); Urine Protein NEG (NEG-TRACE)
[2020-10-08 00:31] LABS: Basophils Absolute Auto 0.1 X10*3/uL (0.0-0.2); Basophils Percent Auto 0.7 % (0-2); Eosinophils Absolute Auto 0.2 X10*3/uL (0.0-0.4); Eosinophils Percent Auto 2.6 % (0-4); Hemoglobin 15.4 g/dl (14.0-18.0); Imm Gran Abs Auto 0.01 X10*3/uL (0.00-0.03); Imm Gran Pct Auto 0.1 % (0.0-0.4); Lymphocytes Absolute Auto 3.9 X10*3/uL (1.2-4.9); Lymphocytes Percent Auto 47.9 % (20-40); MANUAL DIFF FLAG NO; Mean Corpuscular HGB Conc 33.5 g/dl (31.0-36.0); Mean Corpuscular Hemoglobin 29.9 pg (27.0-33.0); Mean Corpuscular Volume 89.3 fL (80-98); Mean Platelet Volume 9.1 fL (9.4-12.4); Monocytes Absolute Auto 0.6 X10*3/uL (0.1-1.2); Monocytes Percent Auto 7.7 % (2-11); Neutrophils Absolute Auto 3.4 X10*3/uL (2.0-8.3); Platelet Count 416 X10*3/uL (160-400); Red Blood Count 5.15 X10*6/uL (4.60-5.80); Red Cell Distribution Width 12.2 % (11.0-16.0); White Blood Count 8.2 X10*3/uL (4.8-10.8)
[2020-10-08] MEDS: 0.9 % Sodium Chloride 1,000 ML 999 ML IV (00:31)
[2020-10-08] MEDS: Ketorolac Tromethamine 30 MG/ML VIAL IVPUSH (00:31)
[2020-10-08 00:41] VITALS: BP 140/76; PULSE 81; TEMP 36.1
[2020-10-08 01:01] LABS: Alanine Aminotransferase 81 U/L (0-40); Albumin Level 4.3 g/dL (3.5-5.0); Alkaline Phosphatase 81 U/L (39-117); Anion Gap 11 (12-20); Aspartate Amino Transferase 28 U/L (5-37); Bilirubin Total 0.6 mg/dL (0.0-1.0); Blood Urea Nitrogen 19 mg/dL (9-16); Carbon Dioxide 26 mmol/L (22-29); Chloride 109 mmol/L (96-108); Estimated Glomerular Filt Rate > 60; Glucose Random 93 mg/dL (60-115); Potassium 4.3 mmol/l (3.3-5.1); Sodium 142 mmol/L (135-145); Total Protein 6.8 g/dL (6.5-8.0)
--- NOTE | 2020-10-08 01:13 | ED_ITS ---
HPI - Abdominal Pain General Chief Complaint: Abdominal Pain Stated Complaint: LEFT GROIN PAIN WORSENING OVER 3 HOURS Time Seen by Provider: 10/07/20 20:51 Source: patient Mode of arrival: ambulatory Limitations: no limitations History of Present Illness HPI narrative: 35-year-old male with history of anxiety disorder and renal calculi who is status post COVID-19 states suprapubic/left flank pain ongoing for the past 3 hours pain as sharp/stabbing like /10. MD elicited complaint: abdominal pain and flank pain Onset (ago): day(s) Location: diffuse Severity: moderate Radiation: none Migration to: no migration Relieving factors: nothing Associated symptoms: denies other symptoms Related Data Previous Rx's Medication Instructions Recorded ibuprofen 800 mg PO Q8H PRN #30 tab 07/31/20 ondansetron HCl [Zofran] 4 mg PO Q8H PRN #10 tab 07/31/20 oxycodone 5 mg PO BID PRN #10 tab 07/31/20 tamsulosin [Flomax] 0.4 mg PO DAILY #10 cap 07/31/20 cyclobenzaprine 20 mg PO Q8H PRN #14 tab 09/22/20 lidocaine [Lidoderm] 1 patch TOPICAL DAILY #15 ea 09/22/20 naproxen 500 mg PO BID PRN #20 tab 09/22/20 Allergies Allergy/AdvReac Type Severity Reaction Status Date / Time No Known Allergies Allergy Verified 09/21/20 12:14 Review of Systems Review of Systems Constitutional: No Weight loss, No Fever, No Chills, No Night Sweats, No Fatigue, No Malaise ENT/Mouth: No Hearing loss, No Ear Pain, No Nasal Congestion, No Sinus Pain, No Hoarseness, No sore throat, No Rhinorrhea, No Swallowing Difficulty Eyes: No Eye Pain, No Swelling, No Redness, No Foreign Body, No Discharge, No Vision Changes Cardiovascular: No Chest Pain, No SOB, No Dyspnea on Exertion, No Orthopnea, No Edema, No Palpitations Respiratory: No Cough, No Sputum, No Wheezing, No Smoke Exposure, No Dyspnea Gastrointestinal: No Nausea, No Vomiting, No Diarrhea, No Constipation, + abdominal Pain, No Hematochezia, No Melena Genitourinary: no irregular bleeding, No Dysuria, No Urinary Frequency, No Hematuria, No Urinary Incontinence, No Urgency, No Flank Pain Musculoskeletal: No joint pain, No Myalgias, No Joint Swelling Skin: No Skin Lesions, No rash Neuro: No Weakness, No Numbness, No Paresthesias, No Loss of Consciousness, No Dizziness, No Headache Psych: No Anxiety/Panic, No Depression, No SI/HI/AH/VH, No Social Issues Heme/Lymph: No Bruising, No Bleeding,No Lymphadenopathy Endocrine: No Polyuria, No Polydipsia, No Temperature Intolerance Yes all other systems are reviewed and are negative Physical Exam Vital Signs: Vital Signs: Last Vital Signs Temp 97.0 F 10/08/20 00:41 Pulse 81 10/08/20 00:41 Resp 16 10/07/20 23:45 BP 140/76 H 10/08/20 00:41 Pulse Ox 98 10/07/20 23:45 Body Mass Index 38.3 Reviewed Const: General: cooperative and healthy appearing; No acute distress or intoxicated appearing Nutritional Appearance: average body habitus Orientation/consciousness: patient oriented x3 HENMT: Head: Yes normal to inspection Ears: hearing grossly normal bilaterally Eyes: General: appearance normal, both eyes and all related structures Visual Ramirez: normal visual ramirez by confrontation Neck: Neck: Yes normal visual inspection and No tender Thyroid: Thyroid normal Chest: Chest palpation & inspection: normal inspection of the chest Resp: Effort & Inspection: normal respiratory effort Auscultation: clear to auscultation bilaterally Cardio: Jugular venous distension: no JVD Rhythm: regular rhythm Heart sounds: S1 normal heart sound present and S2 normal heart sound present GI: Inspection: Yes normal to inspection Palpation (GI): Soft to palpation Percussion: Yes normal to percussion Auscultation: normal bowel sounds : General: Yes no CVA tenderness Back/Spine/Pelvis: Back: no CVA tenderness Skin: General skin exam: no rashes or lesions noted Neuro: General: patient oriented x3 Extrem: General: Yes normal to inspection Course Course Course Narrative: Has been the ED with increased frequency with numerous complaints often time descriptor of renal calculi seems to be fixated and has had some increased anxiety from previous notes started on meds. Describes pain as different suprapubic and left flank. Clinically he is well nontoxic appearing on the phone but states to me that he is having 9/10 pain. Will check labs, UA and treat with IV fluids, Toradol. Reevaluation(s) Reevaluation #1: States continues to have pain. Reassure the labs and urine is stable. He was scanned earlier this month without acute findings. MDM - Abdominal Pain Lab Data Result diagrams: 10/08/20 00:26 10/08/20 00:26 Labs: Lab Results 10/08/20 10/08/20 10/08/20 Range/Units 00:13 00:26 00:26 WBC 8.2 (4.8-10.8) X10*3/uL RBC 5.15 (4.60-5.80) X10*6/uL Hgb 15.4 (14.0-18.0) g/dl Hct 46.0 (42-52) % MCV 89.3 (80-98) fL MCH 29.9 (27.0-33.0) pg MCHC 33.5 (31.0-36.0) g/dl RDW 12.2 (11.0-16.0) % Plt Count 416 H D (160-400) X10*3/uL MPV 9.1 L (9.4-12.4) fL Immature Gran % (Auto) 0.1 (0.0-0.4) % Neut % (Auto) 41.0 L (45-73) % Lymph % (Auto) 47.9 H (20-40) % [place] % (Auto) 7.7 (2-11) % Eos % (Auto) 2.6 (0-4) % Baso % (Auto) 0.7 (0-2) % Lymph # (Auto) 3.9 (1.2-4.9) X10*3/uL [place] # (Auto) 0.6 (0.1-1.2) X10*3/uL Eos # (Auto) 0.2 (0.0-0.4) X10*3/uL Baso # (Auto) 0.1 (0.0-0.2) X10*3/uL Abs Immat Gran (auto) 0.01 (0.00-0.03) X10*3/uL Absolute Neuts (auto) 3.4 (2.0-8.3) X10*3/uL Absolute Nucleated RBC 0.000 (0.0-0.012) X10*3/uL Nucleated RBC % (auto) 0.0 (0.0-0.2) /100WBC Sodium 142 (135-145) mmol/L Potassium 4.3 (3.3-5.1) mmol/l Chloride 109 H (96-108) mmol/L Carbon Dioxide 26 (22-29) mmol/L Anion Gap 11 L (12-20) BUN 19 H (9-16) mg/dL Creatinine 0.85 (0.5-1.4) mg/dL Estim Creat Clear Calc 147.0 Estimated GFR > 60 Random Glucose 93 (60-115) mg/dL Calcium 9.0 (8.4-10.2) mg/dL Total Bilirubin 0.6 (0.0-1.0) mg/dL AST 28 (5-37) U/L ALT 81 H (0-40) U/L Alkaline Phosphatase 81 (39-117) U/L Total Protein 6.8 (6.5-8.0) g/dL Albumin 4.3 (3.5-5.0) g/dL Urine Color YELLOW Urine Appearance CLEAR Urine pH 5.5 (5.0-8.0) Ur Specific [place] >= 1.030 H (1.005-1.025) Urine Protein NEG (NEG-TRACE) MG/DL Urine Glucose (UA) NEG (NEG) MG/DL Urine Ketones NEG (NEG) MG/DL Urine Blood NEG (NEG) Urine Nitrite NEG (NEG) Ur Leukocyte Esterase NEG (NEG) Discharge Plan Discharge Clinical Impression: Abdominal pain Qualifiers: Abdominal location: left lower quadrant Qualified Code(s): R10.32 - Left lower quadrant pain Patient Disposition: Home, Self-Care Instructions: Abdominal Pain (ED) Additional Instructions: Follow-up as instructed Return if any concerns or worsening symptoms Thank you Prescriptions: No Action ibuprofen 800 mg tablet 800 mg PO Q8H PRN (Reason: pain) Qty: 30 RF: 0 ondansetron HCl [Zofran] 4 mg tablet 4 mg PO Q8H PRN (Reason: nausea and vomiting) Qty: 10 RF: 0 tamsulosin [Flomax] 0.4 mg capsule 0.4 mg PO DAILY Qty: 10 RF: 0 oxycodone 5 mg tablet 5 mg PO BID PRN (Reason: pain) Qty: 10 RF: 0 cyclobenzaprine 10 mg tablet 20 mg PO Q8H PRN (Reason: muscle spasm) Qty: 14 RF: 0 naproxen 500 mg tablet 500 mg PO BID PRN (Reason: pain) Qty: 20 RF: 0 lidocaine [Lidoderm] 5 % adhesive patch,medicated 1 patch topical DAILY Qty: 15 RF: 0 Referrals: Physician,Unknown [Primary Care Provider] - 1 week ([facility]) [facility] Past Medical History Medical History No known health problems Renal colic Social History Social History Alcohol intake: never Smoking Status: Never smoker Smoked in Last 30 Days: No Use of substances other than those prescribed or required for medical reasons: No Any prior treatment program specific to substance use: No Advance Directives: No Advance Directives Information Provided: Yes
[2020-10-11 08:12] LABS: C. trachomatis RNA TMA NOT DETECTED (NOT DETECTED); N. gonorrhoeae RNA TMA NOT DETECTED (NOT DETECTED)
== END 2020-10-08 03:01 | disposition home or self-care (01) ==
PROVIDERS: Nurse Practitioner Primary Care; Emergency Provider Student in an Organized Health Care Education/Training Program
DX: R10.32 Left lower quadrant pain (principal); Z86.19 Personal history of other infectious and parasitic diseases
CPT/HCPCS: 36415; 74176; 80053; 81003; 85025; 87491; 87591; 96361; 96374; 99284; 99285; J1885

== ENCOUNTER 2020-10-11 11:42 | Emergency (ER) | payer MEDICARE, MEDICAID, SELFPAY ==
[2020-10-11 11:54] VITALS: BP 141/88; BP 142/72; PULSE 86; PULSE 90; RESP 16; TEMP 37.2; O2SAT 98; BMI 38.7
--- NOTE | 2020-10-11 12:19 | ED.PSYCH ---
HPI - Psych General Chief Complaint: Psychiatric Symptoms Stated Complaint: CRISIS,NO SI/HI, +COVID MONDAY Time Seen by Provider: 10/11/20 11:59 Source: patient and old records reviewed Mode of arrival: ambulatory Limitations: no limitations History of Present Illness HPI Narrative: 35 y/o male with history of depression, anxiety, recent asymptomatic COVID diagnosis on 09/21 who presents to the ED today with recurrent episodes of severe depression and voices telling him he is going to . He states today he was relaxing and watching TV when he suddenly felt very depressed, was crying, rolling around on his floor and punching it. He called his family who told him to come to the ER. He states he had a similar episode last week when he was walking downtown [place] and felt suddenly depressed. He was thinking about bashing his head into a brick wall to kill himself. He has never had a suicide attempt before. He denies drug and alcohol use. He has been to [facility] before for depression but they didn't want to do anything for me. He is not on any psych medications. MD complaint: suicidal ideation, feels depressed and hallucinations Onset (ago): week(s) (1) Duration: intermittent History of same: No Relieving factors: none Exacerbating factors: none Associated psychiatric symptoms: depression, suicidal ideation, racing thoughts and auditory hallucinations Associated symptoms: denies other symptoms Treatments prior to arrival: none If self harm: admits thoughts of self harm Related Data Previous Rx's Medication Instructions Recorded ibuprofen 800 mg PO Q8H PRN #30 tab 07/31/20 ondansetron HCl [Zofran] 4 mg PO Q8H PRN #10 tab 07/31/20 oxycodone 5 mg PO BID PRN #10 tab 07/31/20 tamsulosin [Flomax] 0.4 mg PO DAILY #10 cap 07/31/20 cyclobenzaprine 20 mg PO Q8H PRN #14 tab 09/22/20 lidocaine [Lidoderm] 1 patch TOPICAL DAILY #15 ea 09/22/20 naproxen 500 mg PO BID PRN #20 tab 09/22/20 Allergies Allergy/AdvReac Type Severity Reaction Status Date / Time No Known Allergies Allergy Verified 09/21/20 12:14 Review of Systems Review of Systems: Constitutional: No Fever, No Chills Cardiovascular: No Chest Pain, No SOB Respiratory: No Cough, No Sputum Gastrointestinal: No Nausea, No Vomiting, No Diarrhea, No abdominal Pain Musculoskeletal: No joint pain, No Myalgias Skin: No Skin Lesions, No rash Neuro: No Headache Psych: + Anxiety/Panic, + Depression [facility] Past Medical History Attestation statement: The following information was validated with the patient. Medical History No known health problems Renal colic Social History Social History Alcohol intake: never Smoking Status: Never smoker Advance Directives: No Advance Directives Information Provided: No Physical Exam Vital Signs: Vital Signs: Last Vital Signs Temp 99 F 10/11/20 11:54 Pulse 90 10/11/20 11:54 Resp 16 10/11/20 11:54 BP 141/88 H 10/11/20 11:54 Pulse Ox 98 10/11/20 11:54 Body Mass Index 38.7 Appearance: Alert. Oriented X3. No acute distress. Eyes: Pupils equal, round and reactive to light. ENT: Pharynx normal. Neck: Normal inspection. Neck supple. CVS: Normal heart rate and rhythm. Pulses normal. Respiratory: No respiratory distress. Breath sounds normal. Abdomen: Obese, Soft and nontender. +BS x4 Skin: Skin warm and dry. Normal skin color. Normal skin turgor. No rashes. Extremities: No lower extremity edema. Neuro: Oriented X 3. No motor deficit. No sensory deficit. Psych: normal affect, good insight to his illness, denies current hallucinations, admits to vague SI, normal speech Course Course Course Narrative: 89 y/o with history of untreated depression and anxiety who presents with depression and reports of voices telling him he's going to . He has had recent labs several times in October, last 10/08. Will get utox and have N re-evaluate him. Reevaluation(s) Reevaluation #1: 12:42 pm - [facility] ER records reviewed - he was there 10/08 - 10/09 and was unable to be placed in respite due to positive covid test (initial dx 09/21, at least 10 days symptom free). He was discharged 10/09 morning with plans for partial hospitalization. Reevaluation #2: COVID negative now. He was moved to the Pod. Awaiting N evaluation. MDM - Psych Restraints Face to Face Assessment: Face to Face Assessment: Current Situation: After assessment of the patient, a review of the pertinent medical record and a discussion with nursing staff, I feel the patient requires a restrain intervention. Reaction To: [] Medical Condition: [] Behavioral State: [] Continued Need: [] Lab Data Labs: Lab Results 10/11/20 Range/Units 14:09 COVID-19 (SUSAN) Negative (Negative) COVID-19 Clin Com See Note Discharge Plan Discharge Prescriptions: No Action ibuprofen 800 mg tablet 800 mg PO Q8H PRN (Reason: pain) Qty: 30 RF: 0 ondansetron HCl [Zofran] 4 mg tablet 4 mg PO Q8H PRN (Reason: nausea and vomiting) Qty: 10 RF: 0 tamsulosin [Flomax] 0.4 mg capsule 0.4 mg PO DAILY Qty: 10 RF: 0 oxycodone 5 mg tablet 5 mg PO BID PRN (Reason: pain) Qty: 10 RF: 0 cyclobenzaprine 10 mg tablet 20 mg PO Q8H PRN (Reason: muscle spasm) Qty: 14 RF: 0 naproxen 500 mg tablet 500 mg PO BID PRN (Reason: pain) Qty: 20 RF: 0 lidocaine [Lidoderm] 5 % adhesive patch,medicated 1 patch topical DAILY Qty: 15 RF: 0
--- NOTE | 2020-10-11 14:17 | PC.NURSE ---
Pt transferred from Main ED, report received from Zeynep BAIRES. Pt alert, affect even. Reports recent hx of intense anxiety, voices in his head telling him that he is going to . Pt orineted to unit and to crisis process- currently eating lunch in [place] area.
--- NOTE | 2020-10-11 14:26 | PC.NURSE ---
Pt denies AH at this time- denies SI though states that he sometimes feels resigned to the possibility of . Pt ate lunch, [facility] faxed.
[2020-10-11 14:29] LABS: COVID-19 Test Negative (Negative); IDNOW Serial# 9DD0AD1C
[2020-10-11 16:00] VITALS: RESP 20
[2020-10-11 16:14] LABS: Amphetamine Screen Urine Not Detected (Not Detect); Barbiturates, Urine Not Detected (Not Detect); Benzodiazepines Screen Urine Not Detected (Not Detect); Cannabinoid Screen Urine Not Detected (Not Detect); Cocaine Screen Urine Not Detected (Not Detect); Opiate Screen Urine Not Detected (Not Detect); Phencyclidine Screen Urine Not Detected (Not Detect)
[2020-10-11 16:56] VITALS: BP 147/89; PULSE 90; RESP 18; TEMP 36.6; O2SAT 99
[2020-10-11 18:00] VITALS: RESP 20
--- NOTE | 2020-10-11 20:11 | PC.NURSE ---
ccare team at bedside for assessment, patient seems engaged, will continue to monitor.
== END 2020-10-11 20:48 | disposition home or self-care (01) ==
PROVIDERS: Physician Assistant; Emergency Provider Emergency Medicine
DX: F33.1 Major depressive disorder, recurrent, moderate (principal); R44.0 Auditory hallucinations; Z20.828 Contact with and (suspected) exposure to other viral communicable diseases; Z79.899 Other long term (current) drug therapy
CPT/HCPCS: 80307; 87635; 99284

== ENCOUNTER 2023-03-10 12:16 | Outpatient (REF) | payer MEDICAID, SELFPAY ==
--- NOTE | ~2023-03-10 | XR_ITS ---
EXAMINATION: 1. RADIOGRAPHS RIGHT TIBIA/FIBULAR 2. RADIOGRAPHS LEFT TIBIA/FIBULA 3. RADIOGRAPHS RIGHT ANKLE 4. RADIOGRAPHS LEFT ANKLE 5. RADIOGRAPHS RIGHT FOOT 6. RADIOGRAPHS LEFT FOOT CLINICAL INFORMATION: Diffuse chronic pain. No injury. COMPARISON: None TECHNIQUE: 2 views of each tibia/fibula, 3 views of each ankle and 3 views of each foot were obtained. FINDINGS: Right tibia/fibula/right ankle/right foot: No fracture of the right tibia or fibula. No focal soft tissue swelling of the right calf. Visualized portion of the right knee are grossly unremarkable. The ankle mortise is well-maintained. No gross ankle joint effusion. No focal soft tissue swelling of the ankle. Bones of the midfoot are well aligned. No tarsal, metatarsal or phalangeal fracture. Small posterior calcaneal enthesophyte. No significant degenerative changes of the right foot. No localized soft tissue swelling of the right foot. Left tibia/fibula/left ankle/left foot: No fracture of the left tibia or fibula. Visualized portion of the left knee are unremarkable. No soft tissue swelling of the left calf. The ankle mortise is maintained. No gross ankle joint effusion. No focal soft tissue swelling of the ankle. No tarsal, metatarsal or phalangeal fracture. Small posterior calcaneal enthesophytes. No significant degenerative changes of the left foot. No localized swelling of the left foot. XR/XR foot RT min 3V IMPRESSION: Grossly unremarkable radiographs of the bilateral tibias/fibulas, bilateral ankles and bilateral feet.
--- NOTE | ~2023-03-10 | XR_ITS ---
EXAMINATION: 1. RADIOGRAPHS RIGHT TIBIA/FIBULAR 2. RADIOGRAPHS LEFT TIBIA/FIBULA 3. RADIOGRAPHS RIGHT ANKLE 4. RADIOGRAPHS LEFT ANKLE 5. RADIOGRAPHS RIGHT FOOT 6. RADIOGRAPHS LEFT FOOT CLINICAL INFORMATION: Diffuse chronic pain. No injury. COMPARISON: None TECHNIQUE: 2 views of each tibia/fibula, 3 views of each ankle and 3 views of each foot were obtained. FINDINGS: Right tibia/fibula/right ankle/right foot: No fracture of the right tibia or fibula. No focal soft tissue swelling of the right calf. Visualized portion of the right knee are grossly unremarkable. The ankle mortise is well-maintained. No gross ankle joint effusion. No focal soft tissue swelling of the ankle. Bones of the midfoot are well aligned. No tarsal, metatarsal or phalangeal fracture. Small posterior calcaneal enthesophyte. No significant degenerative changes of the right foot. No localized soft tissue swelling of the right foot. Left tibia/fibula/left ankle/left foot: No fracture of the left tibia or fibula. Visualized portion of the left knee are unremarkable. No soft tissue swelling of the left calf. The ankle mortise is maintained. No gross ankle joint effusion. No focal soft tissue swelling of the ankle. No tarsal, metatarsal or phalangeal fracture. Small posterior calcaneal enthesophytes. No significant degenerative changes of the left foot. No localized swelling of the left foot. XR/XR tibia fibula RT 2V IMPRESSION: Grossly unremarkable radiographs of the bilateral tibias/fibulas, bilateral ankles and bilateral feet.
--- NOTE | ~2023-03-10 | XR_ITS ---
EXAMINATION: 1. RADIOGRAPHS RIGHT TIBIA/FIBULAR 2. RADIOGRAPHS LEFT TIBIA/FIBULA 3. RADIOGRAPHS RIGHT ANKLE 4. RADIOGRAPHS LEFT ANKLE 5. RADIOGRAPHS RIGHT FOOT 6. RADIOGRAPHS LEFT FOOT CLINICAL INFORMATION: Diffuse chronic pain. No injury. COMPARISON: None TECHNIQUE: 2 views of each tibia/fibula, 3 views of each ankle and 3 views of each foot were obtained. FINDINGS: Right tibia/fibula/right ankle/right foot: No fracture of the right tibia or fibula. No focal soft tissue swelling of the right calf. Visualized portion of the right knee are grossly unremarkable. The ankle mortise is well-maintained. No gross ankle joint effusion. No focal soft tissue swelling of the ankle. Bones of the midfoot are well aligned. No tarsal, metatarsal or phalangeal fracture. Small posterior calcaneal enthesophyte. No significant degenerative changes of the right foot. No localized soft tissue swelling of the right foot. Left tibia/fibula/left ankle/left foot: No fracture of the left tibia or fibula. Visualized portion of the left knee are unremarkable. No soft tissue swelling of the left calf. The ankle mortise is maintained. No gross ankle joint effusion. No focal soft tissue swelling of the ankle. No tarsal, metatarsal or phalangeal fracture. Small posterior calcaneal enthesophytes. No significant degenerative changes of the left foot. No localized swelling of the left foot. XR/XR tibia fibula LT 2V IMPRESSION: Grossly unremarkable radiographs of the bilateral tibias/fibulas, bilateral ankles and bilateral feet.
--- NOTE | ~2023-03-10 | XR_ITS ---
EXAMINATION: 1. RADIOGRAPHS RIGHT TIBIA/FIBULAR 2. RADIOGRAPHS LEFT TIBIA/FIBULA 3. RADIOGRAPHS RIGHT ANKLE 4. RADIOGRAPHS LEFT ANKLE 5. RADIOGRAPHS RIGHT FOOT 6. RADIOGRAPHS LEFT FOOT CLINICAL INFORMATION: Diffuse chronic pain. No injury. COMPARISON: None TECHNIQUE: 2 views of each tibia/fibula, 3 views of each ankle and 3 views of each foot were obtained. FINDINGS: Right tibia/fibula/right ankle/right foot: No fracture of the right tibia or fibula. No focal soft tissue swelling of the right calf. Visualized portion of the right knee are grossly unremarkable. The ankle mortise is well-maintained. No gross ankle joint effusion. No focal soft tissue swelling of the ankle. Bones of the midfoot are well aligned. No tarsal, metatarsal or phalangeal fracture. Small posterior calcaneal enthesophyte. No significant degenerative changes of the right foot. No localized soft tissue swelling of the right foot. Left tibia/fibula/left ankle/left foot: No fracture of the left tibia or fibula. Visualized portion of the left knee are unremarkable. No soft tissue swelling of the left calf. The ankle mortise is maintained. No gross ankle joint effusion. No focal soft tissue swelling of the ankle. No tarsal, metatarsal or phalangeal fracture. Small posterior calcaneal enthesophytes. No significant degenerative changes of the left foot. No localized swelling of the left foot. XR/XR ankle RT min 3V IMPRESSION: Grossly unremarkable radiographs of the bilateral tibias/fibulas, bilateral ankles and bilateral feet.
--- NOTE | ~2023-03-10 | XR_ITS ---
EXAMINATION: 1. RADIOGRAPHS RIGHT TIBIA/FIBULAR 2. RADIOGRAPHS LEFT TIBIA/FIBULA 3. RADIOGRAPHS RIGHT ANKLE 4. RADIOGRAPHS LEFT ANKLE 5. RADIOGRAPHS RIGHT FOOT 6. RADIOGRAPHS LEFT FOOT CLINICAL INFORMATION: Diffuse chronic pain. No injury. COMPARISON: None TECHNIQUE: 2 views of each tibia/fibula, 3 views of each ankle and 3 views of each foot were obtained. FINDINGS: Right tibia/fibula/right ankle/right foot: No fracture of the right tibia or fibula. No focal soft tissue swelling of the right calf. Visualized portion of the right knee are grossly unremarkable. The ankle mortise is well-maintained. No gross ankle joint effusion. No focal soft tissue swelling of the ankle. Bones of the midfoot are well aligned. No tarsal, metatarsal or phalangeal fracture. Small posterior calcaneal enthesophyte. No significant degenerative changes of the right foot. No localized soft tissue swelling of the right foot. Left tibia/fibula/left ankle/left foot: No fracture of the left tibia or fibula. Visualized portion of the left knee are unremarkable. No soft tissue swelling of the left calf. The ankle mortise is maintained. No gross ankle joint effusion. No focal soft tissue swelling of the ankle. No tarsal, metatarsal or phalangeal fracture. Small posterior calcaneal enthesophytes. No significant degenerative changes of the left foot. No localized swelling of the left foot. XR/XR foot LT min 3V IMPRESSION: Grossly unremarkable radiographs of the bilateral tibias/fibulas, bilateral ankles and bilateral feet.
--- NOTE | ~2023-03-10 | XR_ITS ---
EXAMINATION: 1. RADIOGRAPHS RIGHT TIBIA/FIBULAR 2. RADIOGRAPHS LEFT TIBIA/FIBULA 3. RADIOGRAPHS RIGHT ANKLE 4. RADIOGRAPHS LEFT ANKLE 5. RADIOGRAPHS RIGHT FOOT 6. RADIOGRAPHS LEFT FOOT CLINICAL INFORMATION: Diffuse chronic pain. No injury. COMPARISON: None TECHNIQUE: 2 views of each tibia/fibula, 3 views of each ankle and 3 views of each foot were obtained. FINDINGS: Right tibia/fibula/right ankle/right foot: No fracture of the right tibia or fibula. No focal soft tissue swelling of the right calf. Visualized portion of the right knee are grossly unremarkable. The ankle mortise is well-maintained. No gross ankle joint effusion. No focal soft tissue swelling of the ankle. Bones of the midfoot are well aligned. No tarsal, metatarsal or phalangeal fracture. Small posterior calcaneal enthesophyte. No significant degenerative changes of the right foot. No localized soft tissue swelling of the right foot. Left tibia/fibula/left ankle/left foot: No fracture of the left tibia or fibula. Visualized portion of the left knee are unremarkable. No soft tissue swelling of the left calf. The ankle mortise is maintained. No gross ankle joint effusion. No focal soft tissue swelling of the ankle. No tarsal, metatarsal or phalangeal fracture. Small posterior calcaneal enthesophytes. No significant degenerative changes of the left foot. No localized swelling of the left foot. XR/XR ankle LT min 3V IMPRESSION: Grossly unremarkable radiographs of the bilateral tibias/fibulas, bilateral ankles and bilateral feet.
== END 2023-03-10 12:17 | disposition home or self-care (01) ==
LOC: HO.HHCX 12:16
PROVIDERS: Visit Provider Family Medicine
DX: M79.661 Pain in right lower leg (principal); M79.662 Pain in left lower leg; M25.571 Pain in right ankle and joints of right foot; M25.572 Pain in left ankle and joints of left foot; M79.671 Pain in right foot; M79.672 Pain in left foot
CPT/HCPCS: 73590; 73610; 73630